=== PATIENT | female | born 1940 | race Caucasian/White ===

== ENCOUNTER 2021-09-28 12:36 | Emergency (ER) | payer OTHER, SELFPAY ==
[2021-09-28 12:50] VITALS: BP 147/74; PULSE 68; RESP 18; TEMP 36.7; O2SAT 98
--- NOTE | 2021-09-28 13:05 | ED.WOUNDLAC ---
HPI - Wound/Laceration General Chief Complaint: Wound/Laceration Stated Complaint: Laceration to Right Hand Time Seen by Provider: 09/28/21 13:05 Source: patient and family History of Present Illness HPI narrative: PATIENT PRESENTS WITH AN OLD LACERATION TO TOP OF RIGHT HAND. PATIENT STATES SHE HIT THE BACK OF HER HAND ON A METAL CABINET YESTERDAY AFTERNOON. PATIENT IS ON PLAVIX AND IS UNABLE TO STOP AREA FROM BLEEDING. PATIENT IS UNSURE OF HER LAST TETANUS SHOT. Extremity Location: Right: hand Related Data Home Medications Medication Instructions Recorded Confirmed albuterol sulfate 90 mcg/actuation 1 inhalation INHALATION Q4-6H PRN 02/16/20 breath activated powder inhaler aspirin 81 mg tablet,delayed 81 mg PO DAILY 02/16/20 release atorvastatin 80 mg tablet 80 mg PO DAILY 02/16/20 clopidogrel 75 mg tablet 75 mg PO DAILY 02/16/20 diphenhydramine 25 1 tablet PO Q6H PRN 02/16/20 mg-acetaminophen 500 mg tablet furosemide 20 mg tablet 20 mg PO QAM 02/16/20 nebivolol 10 mg tablet 10 mg PO DAILY 02/16/20 pantoprazole 40 mg tablet,delayed 40 mg PO QAM 02/16/20 release spironolactone 25 mg tablet 25 mg PO DAILY 02/16/20 vitamin B complex 1 tablet PO DAILY 02/16/20 Allergies Allergy/AdvReac Type Severity Reaction Status Date / Time amoxicillin Allergy Unknown Unknown Verified 09/28/21 13:20 hydromorphone AdvReac Unknown Confusion Verified 09/28/21 13:20 Review of Systems Review of Systems: CONSTITUTIONAL: Denies fever, chills, or sweats. EYES: Denies visual changes, redness, or discharge. ENT: Denies rhinorrhea, congestion, sore throat, or otalgia. CARDIOVASCULAR: Denies chest pain, palpitations, or edema. RESPIRATORY: Denies cough or dyspnea. GASTROINTESTINAL: Denies abdominal pain, nausea, vomiting, or diarrhea. GENITOURINARY: Denies dysuria or hematuria. SKIN: Denies rash or itching. MUSCULOSKELETAL: Denies back pain, joint pain, or myalgia. NEUROLOGIC: Denies headache, numbness, or weakness. PSYCHIATRIC: Denies anxiety or depression. 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 Smoking packs per day: 1 Smoking cigarettes per day: 20.0 Years smoked: 60 Smoking pack-years: 60.00 Smoking status: Current every day smoker Alcohol intake: never Substance use: never Comments At time of signature, agree with nursing past medical, surgical, social and family history. There is no relevant family history pertinent to the presenting complaint Exam Narrative: GENERAL: Well-appearing, well-nourished, and in no acute distress. HEAD: Normocephalic, atraumatic. EYES: PERRLA and EOMI. ENT: Nares clear, no rhinorrhea or epistaxis. Mucous membranes moist. NECK: Supple. CHEST: Clear to auscultation. No respiratory distress. HEART: Regular rate and rhythm. No murmur heard. Normal peripheral pulses. ABDOMEN: Soft, nontender, nondistended, normal active bowel sounds. EXTREMITIES: Normal range of motion. No edema. HAND EXAM - OLD laceration TO TOP OF RIGHT HAND. , no swelling, no erythema, normal digit cascade with flexion of fingers, median nerve, ulnar nerve, radial nerve is intact. Normal sensation of each side of each finger, can perform `ok? sign, `cross over finger test of index and middle fingers? and `thumbs up? sign, normal thumb opposi
[2021-09-28] MEDS: TETANUS,DIPHTHERIA,AC PERTUSSIS ADULT (0.5 ML) BOOSTRIX IM (13:27)
== END 2021-09-28 13:45 | disposition home or self-care (01) ==
PROVIDERS: Emergency Provider Nurse Practitioner Family; PCP Internal Medicine Infectious Disease
DX: S61.411A Laceration without foreign body of right hand, initial encounter (principal); W22.8XXA Striking against or struck by other objects, initial encounter; T14.8XXA Other injury of unspecified body region, initial encounter; Z23 Encounter for immunization; F17.210 Nicotine dependence, cigarettes, uncomplicated; J44.9 Chronic obstructive pulmonary disease, unspecified
CPT/HCPCS: 90471; 90715; 99212; G0463

== ENCOUNTER 2025-06-20 14:00 | Emergency (ER) | payer OTHER, SELFPAY ==
[2025-06-20 14:14] VITALS: BP 174/80; PULSE 69; RESP 18; TEMP 36.9; O2SAT 97
--- NOTE | 2025-06-20 14:49 | ED.EXTPRO ---
HPI - Extremity Problem General Chief complaint: Extremity Problem,Nontraumatic Stated complaint: R leg pain Time Seen by Provider: 06/20/25 14:30 Source: patient, RN notes reviewed and old records reviewed Mode of arrival: ambulatory Limitations: no limitations History of Present Illness HPI Narrative: 85 year old female who presents to [facility] care with complaints of 3 day history of right bettencourt pain which radiates to right thigh and groin and into buttocks. Patient reports that the only injury was a small book fell onto her bettencourt 3 days ago with small bruised area to her anterior right bettencourt noted. Patient states that she does have some lower back issues at time where she has some pain in right lower back that goes into her leg. She reports that she was found to have some osteoporosis in April on back xray and was started on Fosamax. Patient is on blood thinners of Eliquis daily for heart disease and states has a stent in her abdomen somewhere. Patient reports that she has taken some Tylenol for her discomfort. MD Complaint: extremity pain Onset (ago): day(s) (3) Location: right and lower extremity (anterior bettencourt area) Severity scale (1-10): 6 Quality: aching Related Data Home Medications ?Medication ?Instructions ?Recorded ?Confirmed ?Last Taken ?Type albuterol sulfate 90 mcg/actuation 1 inhalation inhalation Q4-6H PRN 02/16/20 09/28/21 Unknown History breath activated powder inhaler Dyspnea aspirin 81 mg tablet,delayed 81 mg PO DAILY 02/16/20 09/28/21 Unknown History release (Adult Aspirin Regimen) atorvastatin 80 mg tablet 80 mg PO DAILY 02/16/20 09/28/21 Unknown History furosemide 20 mg tablet 20 mg PO QAM 02/16/20 09/28/21 Unknown History spironolactone 25 mg tablet 25 mg PO DAILY 02/16/20 09/28/21 Unknown History vitamin B complex (B 1 tablet PO DAILY 02/16/20 09/28/21 Unknown History Complex-Vitamin B12 tablet) alendronate 70 mg tablet mg PO 06/20/25 Unknown History amiodarone 100 mg tablet mg 06/20/25 Unknown History apixaban 2.5 mg tablet (Eliquis) mg 06/20/25 Unknown History buspirone 5 mg tablet mg 06/20/25 Unknown History magnesium oxide 400 mg (241.3 mg mg 06/20/25 Unknown History magnesium) tablet metolazone 2.5 mg tablet mg 06/20/25 Unknown History metoprolol succinate 50 mg mg PO 06/20/25 Unknown History tablet,extended release 24 hr Allergies Allergy/AdvReac Type Severity Reaction Status Date / Time amoxicillin Allergy Unknown Unknown Verified 06/20/25 14:17 doxycycline Allergy Unknown Verified 06/20/25 14:17 hydromorphone AdvReac Unknown Confusion Verified 06/20/25 14:17 Review of Systems Review of Systems: CONSTITUTIONAL: Denies fever, chills, or sweats. EYES: Denies visual changes, redness, or discharge. ENT: Denies rhinorrhea, congestion, sore throat, or otalgia. CARDIOVASCULAR: Denies chest pain, palpitations, or edema. RESPIRATORY: Denies acute cough or any increased dyspnea, does have COPD and continues to smoke cigarettes daily GASTROINTESTINAL: Denies abdominal pain, nausea, vomiting, or diarrhea. GENITOURINARY: Denies dysuria or hematuria. SKIN: Denies rash or itching. MUSCULOSKELETAL: Reports some lower back pain,pain in right bettencourt thigh groin and buttocks , or myalgia. NEUROLOGIC: Denies headache, numbness, or weakness. PSYCHIATRIC: Reports history of anxiety or depression. All systems reviewed & are unremarkable except as noted in HPI and below PMFSH Past Medical History Medical History (Updated 06/21/25 @ 14:30 by Giselle Carlson APRN) Elevated cholesterol Hypertension CHF (congestive heart failure) Cardiomyopathy Chronic a-fib Heart disease COPD (chronic obstructive pulmonary disease) case management patient Decreased diffusion capacity Tobacco abuse Shortness of Breath Bibasilar crackles Surgical History Surgical History (Updated 06/21/25 @ 13:58 by Giselle Carlson APRN) History of dilatation and curettage Hx of section History of tonsillectomy Hx of cholecystectomy Family History Family History (Updated 02/19/20 @ 22:09 by Leanna Ken MD) Mother Blood clotting disorder age 53 Father Liver disease Social History Social History (Updated 02/19/20 @ 22:11 by Leanna Ken MD) Social History: Her granddaughter lives with her; smokes daily, no alcohol, retired; 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 Smoking packs per day: 1 Smoking cigarettes per day: 20.0 Years smoked: 60 Smoking pack-years: 60.00 Smoking status: Current every day smoker Alcohol intake: never Substance use: never Living arrangements: with family Occupation/Education: retired Comments At time of signature, agree with nursing past medical, surgical, social and family history. There is no relevant family history pertinent to the presenting complaint Exam Narrative: GENERAL:chronic ill-appearing, well-nourished, and in no acute distress. HEAD: Normocephalic, atraumatic. EYES: PERRLA and EOMI. ENT: Nares clear, no rhinorrhea or epistaxis. Mucous membranes moist.TM's normal with good light reflex, throat pink with no swelling or exudates NECK: Supple. no lymphadenopathy CHEST: Decreased to auscultation. No respiratory distress.occasional dry cough noted SAO2 97% on room air HEART: irregular rate and rhythm. No murmur heard. Normal peripheral pulses. ABDOMEN: Soft, nontender, nondistended, normal active bowel sounds, reports some constipation issues EXTREMITIES: Normal range of motion. No edema noted pedal pulse present right foot small bruise to right lower anterior bettencourt, patient is able to ambulate without increased pain voiced and gait steady. . SKIN: Warm, dry, no rash. NEURO: No focal deficits. Alert and oriented x3. Course Course Emergency Course: Patient is aware of diagnosis, understands and agrees to treatment plan.? Anticipatory guidance given.? Patient agrees to follow-up as directed and is aware of reasons to seek care at the emergency department. Portions of this record may have been created with voice recognition software Level of Care: Express Care Visit Vital Signs Vital signs: Vital Signs Temperature 36.9 C 06/20/25 14:14 Pulse Rate 69 06/20/25 14:14 Respiratory Rate 18 06/20/25 14:14 Blood Pressure 174/80 H 06/20/25 14:14 Pulse Oximetry 97 06/20/25 14:14 Oxygen Delivery Room Air 06/20/25 14:14 Temperature 36.9 C 06/20/25 14:14 Pulse Rate 69 06/20/25 14:14 Respiratory Rate 18 06/20/25 14:14 Blood Pressure 174/80 H 06/20/25 14:14 Pulse Oximetry 97 06/20/25 14:14 Oxygen Delivery Room Air 06/20/25 14:14 Reviewed MDM - Extremity (Nontraumatic) Differential Diagnosis Differential diagnosis: Likely other (pain to right leg, lower back pain, contusion right leg, bruise to lower right anterior bettencourt.) Medical Records Attestation: I reviewed the patient's medical records. Critical Care Time Critical Care Time Critical Care Time: No Discharge Plan Discharge Clinical Impression: Leg pain, right Pain in bettencourt Qualifiers: Laterality: right Qualified Code(s): M79.661 - Pain in right lower leg Patient Disposition: Home Condition: Stable Instructions: Leg Pain (ED) Additional Instructions: Tylenol arthritis 650 mg one tab orally every 6 -8 hours routinely Tylenol for lesser pain Follow-up with PCP for any further complaints or problems Follow-up with PCP if further problems or concerns Ice to the area 20-30 minutes 4-6 times a day Elevate above heart If your symptoms persist, change or worsen significantly before you can contact your personal physician then please, without delay, go to the emergency department for further evaluation. Follow-up with PCP in 7-10 days or sooner if needed Follow up with PCP soon in regards to your blood pressure which is elevated above threshold for referral. Blood pressure above 120/80 may indicate pre-hypertension. Patient Language: Croatian Prescriptions: No Action metolazone 2.5 mg tablet buspirone 5 mg tablet metoprolol succinate 50 mg tablet extended release 24 hr PO alendronate 70 mg tablet PO magnesium oxide 400 mg (241.3 mg magnesium) tablet amiodarone 100 mg tablet Eliquis 2.5 mg tablet furosemide 20 mg tablet 20 mg PO QAM atorvastatin 80 mg tablet 80 mg PO DAILY spironolactone 25 mg tablet 25 mg PO DAILY aspirin [Adult Aspirin Regimen] 81 mg tablet,delayed release (DR/EC) 81 mg PO DAILY albuterol sulfate 90 mcg/actuation aerosol powdr breath activated 1 inhalation INHALATION Q4-6H PRN (Reason: Dyspnea) vitamin B complex [B Complex-Vitamin B12] Tablet 1 tablet PO DAILY albuterol sulfate 2.5 mg /3 mL (0.083 %) solution for nebulization 2.5 mg INHALATION Q6H Qty: 90 0RF Follow-up/Referrals: UNKNOWN,DOCTOR [Primary Care Provider] Time of Disposition: 14:54 Quality Jimbo Coma Scale Eyes: Open Verbal: Oriented and Alert Motor: Follows Commands [place] Coma Total Score: 15
--- OUTSIDE RECORDS SUMMARY | 2025-06-20 15:37 | XMS_ITS | Encounter Summary ---
Author Organization [facility] Healthcare Address [address] [place] [address] Care Team Providers Care Engine Repair Supervisor Name Role Phone Sarthak Jensen MD Unavailable [phone] Darren Houser MD Unavailable [phone] Bette More MD Unavailable [phone] Leanna Ken MD Unavailable [phone] Nicolas Garcia DPM Unavailable [phone] MD Unavailable [phone] Bertrand Vick MD Unavailable [phone] Leti Manuel NP Primary Care Provider Encounter Details Date Type Department Care Team (Latest Contact Info) Description 06/06/2025 Results Follow-Up [facility] at [address] [place] [id number] Obi Lawler MA Basic metabolic panel, Pro B-type natriuretic peptide, eGFR Social History Tobacco Use Types Packs/Day Years Used Date Smoking Tobacco: Every Day Cigarettes 0.5 70.6 Started: 1955; Last attempted to quit: 02/14/2023 Smokeless Tobacco: Never Alcohol Use Standard Drinks/Week Comments Never 0 (1 standard drink = 0.6 oz pur e alcohol) [facility] Utilities Answer Date Recorded In the past 12 months has e electric, gas, oil, or water company threatened to shut off services in your home? No 02/01/2025 Social Connection and Isolation Panel Answer Date Recorded In a typical week, how many times do you talk on the phone with family, friends, or neighbors? More than three times a week 02/01/2025 How often do you get togethe r with friends or relatives? More than three times a week 02/01/2025 How often do you attend chur ch or confucianist services? Never 02/01/2025 Do you belong to any clubs o r organizations such as mormonism groups, unions, fraternal or athletic groups, or school groups? No 02/01/2025 How often do you attend meet ings of the clubs or organizations you belong to? Never 02/01/2025 Are you , , di vorced, , never , or living with a partner? 02/01/2025 Overall Financial Resource Strain (CARDIA) Answe r Date Recorded How hard is it for you to pa y for the very basics like food, housing, medical care, and heating? Not very hard 02/01/2025 PHQ-2 Answer Date Recorded PHQ-2 Total Score (If total score is 3 or more points, staff should administer the PHQ-9) 0 02/06/2025 Hunger Vital Sign Answer Date Recorded Within the past 12 months, y ou worried that your food would run out before you got the money to buy more. Never true 02/02/20 25 Within the past 12 months, t he food you bought just didn't last and you didn't have money to get more. Never true 02/01/2025 PRAPARE - Transportation Answer Date Re corded In the past 12 months, has l ack of transportation kept you from medical appointments or from getting medications? No 01/15 In the past 12 months, has l ack of transportation kept you from meetings, work, or from getting things needed for daily living? No 02/01/2025 Housing Stability Vital Sign Answer Santi e Recorded In the last 12 months, was t here a time when you were not able to pay the mortgage or rent on time? No 07/17/2023 In the last 12 months, how many places have you lived? 1 07/17/2023 In the last 12 months, was t here a time when you did not have a steady place to sleep or slept in a alf (including now)? No 07/17/2023 Housing Stability Vital Sign Answer Santi e Recorded Unable to Pay for Housing in the Last Year Not o n file 02/01/2025 In the past 12 months, how m any times have you moved where you were living? 0 02/01/2025 At any time in the past 12 m [facility], were you homeless or living in a alf (including now)? No 02/01/2025 AUDIT-C Answer Date Recorded Q1: How often do you have a drink containing alcohol? Never 03/28/2025 Q2: How many drinks containi ng alcohol do you have on a typical day when you are drinking? Patient does not drink Q3: How often do you have si x or more drinks on one occasion? Never 03/28/2025 Personal Safety Answer Date Recorded Have you ever been in or are you currently in a harmful physical or emotional relationship or is someone making you feel afraid or unsafe? 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 Gender Identity Not on file Sexual Orientation Not on file documented as of this encounter Plan of Treatment Not on file documented as of this encounter Visit Diagnoses Not on filedocumented in this encounter Care Teams Engine Repair Supervisor Relationship Specialty Start Date End Date Leti Manuel NP [address] [place] [id number] PCP - General Family Medicine 11/15/24 Sarthak Jensen MD Consulting Physician Cardiology 03/04/18 Darren Houser MD Consulting Physician Cardiology 08/28/19 Bette More MD Consulting Physician Cardiology 01/11/20 Leanna Ken MD [id number] [address] Consulting Physician Pulmonary Disease 02/15/20 Nicolas Garcia DPM [address] [place] [address] Consulting Physician Foot and Ankle Surg 05/08/[address] MD [address] [place] [address] Consulting Physician Dermatology 02/10/22 Bertrand Vick MD [address] [place] [address] Referring Physician Ophthalmology 12/09/23 documented as of this encounter
--- OUTSIDE RECORDS SUMMARY | 2025-06-20 15:37 | XMS_ITS | Clinical Summary ---
Author Organization [facility] Address [address] [address] Phone Care Team Providers Care Commercial Driver Name Role Phone Cornel Amaya MD Primary Care Provider [phone] Allergies Active Allergy Reactions Criticality Noted Date Comments Amoxicillin Itching Medium 07/17/2015 Doxycycline Anxiety 02/25/2024 Hydromorphone Hallucinations 02/25/2024 Medications aspirin EC 81 MG Tablet Delayed Response Take 81 mg by mouth daily. Active apixaban (Eliquis) 2.5 MG Tablet Take 2.5 mg by mouth 2 times daily. Active atorvastatin (LIPITOR) 80 MG Tablet Take 80 mg by mouth nightly. Active magnesium oxide (MAG-OX) 400 MG Tablet Take 400 mg by mouth daily. Active metoprolol Succinate (TOPROL-XL) 25 MG TABLET SR 24 HRIndications:Hype rtrophic Cardiomyopathy Take 25 mg by mouth daily. Indications: Hypertrophic Cardiomyopathy Active furosemide (LASIX) 20 MG Tablet Take 60 mg by mouth daily. Active amiodarone HCl (CORDARONE) 100 MG Tablet Take 100 mg by mouth daily. Active Potassium Chloride Priscila ER (KLOR-CON M20 PO) Take 20 mEq by mouth daily. Active Cyanocobalamin (Vitamin B-12 CR) 1000 MCG Tablet Controlled Release Take 1 Tablet by mouth daily. Active diphenhydrAMINE-AP AP, sleep, (TYLENOL PM EXTRA STRENGTH PO) Take 1 Tablet by mouth nightly. Active famotidine (PEPCID) 20 MG Tablet Take 20 mg by mouth 2 times daily. Active metOLazone (ZAROXOLYN) 2.5 MG Tablet 2.5 mg PO weekly prn for weight gain x>2 lbs 90 Tablet 02/27/20 24 Active Active Problems Problem Noted Date Diagnosed Date Tobacco abuse Mesenteric artery stenosis Overview (02/25/2024): Stent x 3 Irritable bowel syndrome with diarrhea Hypertension Heart murmur Dyslipidemia COPD (chronic obstructive pulmonary disease) Colon polyps Carotid artery stenosis Aortic stenosis Resolved Problems Problem Noted Date Diagnosed Date Resolved Date Hypokalemia 02/25/2024 02/27/2024 ROSALINA (acute kidney injury) 02/25/2024 Elevated troponin 02/25/2024 02/27/2024 Immunizations Immunization Administration Dates Next Due Influenza Vaccine greater than 3 yrs 06/13/2015 Family History Medical History Relation Name Comments Crohn's Disease Sister Clotting Disorder Other PE Relation Name Status Comments Sister Other Social History Tobacco Use Types Packs/Day Years Used Date Smoking Tobacco: Every Day Cigarettes 1 60 Tobacco Cessation:Ready to Q uit: Not Asked; Counseling Given: Not Answered Alcohol Use Standard Drinks/Week Comments Yes 0 (1 standard drink = 0.6 oz pur e alcohol) Socially when younger [facility] Utilities Answer Date Recorded In the past 12 months has th e [employer], gas, oil, or water [employer] threatened to shut off services in your home? Patient unable to answer 02/25/2024 Exercise Vital Sign Answer Date Recorde d On average, how many days pe r week do you engage in moderate to strenuous exercise (like a brisk walk)? Patient declined Minutes of Exercise per Session Not on file 02/25/2024 Hunger Vital Sign Answer Date Recorded Within the past 12 months, y ou worried that your food would run out before you got the money to buy more. Patient unable to answer 02/25/2024 Within the past 12 months, t he food you bought just didn't last and you didn't have money to get more. Patient unable to answer 02/25/2024 PRAPARE - Transportation Answer Date Re corded In the past 12 months, has l ack of transportation kept you from medical appointments or from getting medications? Patient unable to answer 02/25/2024 In the past 12 months, has l ack of transportation kept you from meetings, work, or from getting things needed for daily living? Patient unable to answer 02/25/2024 Housing Stability Vital Sign Answer Santi e Recorded In the last 12 months, was t here a time when you were not able to pay the mortgage or rent on time? Patient unable to answer 02/25/2024 In the past 12 months, how m any times have you moved where you were living? 0 02/25/2024 At any time in the past 12 m ont, were you homeless or living in a skilled nursing (including now)? Patient unable to answer 02/25/2024 Sexually Active Control Partners Comments Not Currently Comments No Sex and Gender Information Value Date Recorded Sex Assigned at Not on file Legal Sex Female 7:57 PM CDT Gender Identity Not on file Sexual Orientation Not on file Last Filed Vital Signs Vital Sign Reading Time Taken Comments Blood Pressure 121/52 02/27/2024 8:24 AM CDT Pulse 66 02/27/2024 8:00 AM CDT Temperature 36 C (96.8 F) 02/27/2024 8:00 AM CDT Respiratory Rate 18 02/27/2024 8:00 AM CDT Oxygen Saturation 100% 02/27/2024 8:00 AM CDT Inhaled Oxygen Concentration - - Weight 59 kg (130 lb) 02/26/2024 11:01 AM CDT be d scale Height 160 cm (5' 3) 02/25/2024 8:56 PM CDT Body Mass Index 23.03 02/25/2024 8:56 PM CDT Plan of Treatment Health Maintenance Due Date Last Done Comments Hepatitis C Virus (HCV) Screening 1940 Medicare Initial AWV [id number] 08/17/2013 Respiratory Syncytial Virus (RSV) Immunization (Adult) (1 - 1-dose 75+ series) 2014 DEXA Bone Density 11/08/2023 11/07/2021, , 02/25/2017 Influenza Immunization (#1) 04/17/202504/17, 04/25/2023, 06/26/2022, Additional history exists SARS-COV-2 Immunization ( season) 2025 02/24/2022, 08/22/2021, 12/04/2020, Additional history exists Lung Cancer Screening Discontinued 09/28/2018, 016 Pneumococcal Immunization (50+ years) Completed 04/21/2019, 05/06/2016, 07/05/2012 Pneumococcal Immunization Combined Discontinued 04/21/2019, 05/06/2016, 07/05/2012 Zoster Immunization Completed 10/24/2020, DTaP/Tdap/Td Immunization Discontinued 09/28/2021, TdaP Immunization Completed 09/28/2021, 07/05/2012 Hepatitis B Immunization Aged Out No longer eligible based on patient's age to complete this topic Human Papillomavirus (HPV) Immunization Aged Out No longer eligible based on patient's age to complete this topic Meningococcal Immunization (ACWY) Aged Out No longer eligible based on patient's age to complete this topic Rotavirus Immunization Aged Out No lo nger eligible based on patient's age to complete this topic Insurance MEDICARE C [employer] Advance Directives * Full Code (Latest Code Status on File) Date Activated Date Inactivated Comments 02/25/2024 7:33 PM 02/27/2024 2:08 PM CPR-Full Bassam atment: FULL ARREST: Attempt Resuscitation/CPR wit intubation and mechanical ventilation. PRE-ARREST: Use entire range of life support measures to stabilize the patient. Care Teams Commercial Driver Relationship Specialty Start Date End Date Cornel Amaya MD [employer], [address] [place] [address] PCP - General Infectious Disease 02/25/24
--- OUTSIDE RECORDS SUMMARY | 2025-06-20 15:38 | XMS_ITS | Clinical Summary ---
Author Organization [facility] Address [address] [place] [address] Care Team Providers Care Clinical Unit Educator Name Role Phone Sarthak Jensen MD Unavailable [phone] Darren Houser MD Unavailable [phone] Bette More MD Unavailable [phone] Leanna Ken MD Unavailable [phone] Nicolas Garcia DPM Unavailable [phone] MD Unavailable [phone] Bertrand Vick MD Unavailable [phone] Leti Manuel NP Primary Care Provider Allergies Active Allergy Reactions Criticality Noted Date Comments Amoxicillin Itching Medium Palms and bottom of itch, Doxycycline Nausea only,Anxiety Low 03/13/2020 Severe nausea, and call Hydromorphone Mental status changes,Hallucinations Medium 06/02/2017 Ezetimibe Nausea & Vomiting Low 02/10/2022 Medications aspirin 81 mg enteric coated tablet Take 1 tablet (81 mg total) by mouth daily Active acetaminophen (TYLENOL) 500 mg tablet Take 1-2 tablets (500-1,000 mg total) by mouth every 8 (eight) hours as needed for pain 023 Active diphenhydrAMINE-a cetaminophen (TYLENOL PM) 25-500 mg tablet Take 1 tablet by mouth nightly Active cholecalciferol (VITAMIN D-3) 1,000 unit capsule Take 1 capsule (1,000 Units total) by mouth daily Active cyanocobalamin (Vitamin B-12) 1,000 mcg tablet Take 1 tablet (1,000 mcg total) by mouth daily Active saliva stimulant agent (BIOTENE) spray,non-aerosol Indications:Dry mouth Apply 1-2 sprays to mouth 3 (three) times a day as needed (dry mouth) 44.3 mL 1 Active metOLazone (ZAROXOLYN) 2.5 mg tabletIndications :Congestive heart failure with left ventricular diastolic dysfunction, chronic (HCC) TAKE A DOSE IF YOU GAIN 2 OR MORE LBS. 90 tablet 1 025 Active Additional Information Patient not taking.Reported on 06/05/2025 metOLazone (ZAROXOLYN) 2.5 mg tabletIndications :Congestive heart failure with left ventricular diastolic dysfunction, chronic (HCC),Mixed hyperlipidemia Take 1 tablet (2.5 mg total) by mouth 2 (two) times a week 30 tablet 3 Active bisacodyL 5 mg tabletIndications :Other constipation Take 5 mg by mouth 2 (two) times a day as needed (constipation) 30 tablet Active Additional Information Patient not taking.Reported on 06/05/2025 albuterol 2.5 mg /3 mL (0.083 %) nebulizer solutionIndicatio ns:Centrilobular emphysema Take 3 mL (2.5 mg total) by nebulization 4 (four) times a day as needed for wheezing 75 mL Active amiodarone (PACERONE) 100 mg tabletIndications :Hypertrophic cardiomyopathy (HCC) Take 1 tablet (100 mg total) by mouth daily 90 tablet 025 2025 Active albuterol HFA (PROVENTIL HFA,VENTOLIN HFA,PROAIR HFA) 90 mcg/actuation inhalerIndication s:SOB (shortness of breath) INHALE 2 PUFFS BY MOUTH EVERY 6 HOURS NEEDED FOR WHEEZE 8.5 each Active apixaban (Eliquis) 2.5 mg tabletIndications :atrial fibrillation Take 1 tablet (2.5 mg total) by mouth every 12 (twelve) hours 180 tablet 3 Active furosemide (LASIX) 40 mg tablet Take 1 tablet (40 mg total) by mouth daily 30 tablet 02/21/2 025 2025 Active spironolactone (ALDACTONE) 25 mg tablet Take 1 tablet (25 mg total) by mouth daily 30 tablet 11 025 2025 Active atorvastatin (LIPITOR) 80 mg tabletIndications :Mixed hyperlipidemia Take 1 tablet (80 mg total) by mouth daily 90 tablet 1 Active metoprolol XL (TOPROL-XL) 50 mg extended release tabletIndications :Essential hypertension Take 0.5 tablets (25 mg total) by mouth daily 90 tablet 1 Active potassium chloride ER 20 mEq CR tablet Active busPIRone (BUSPAR) 5 mg tabletIndications :Generalized Anxiety Disorder Take 1 tablet (5 mg total) by mouth 3 (three) times a day 270 tablet 1 Active Additional Information Patient not taking.Reported on 06/05/2025 alendronate (FOSAMAX) 70 mg tabletIndications :Age-related osteoporosis without current pathological fracture Take 1 tablet (70 mg total) by mouth every 7 days Take in the morning with a full glass of water, on an empty stomach, and do not take anything else by mouth or lie down for the next 30 min. 12 tablet 4 025 2025 Active Additional Information Patient not taking.Reported on 06/05/2025 magnesium oxide (MAG-OX) 400 mg (241.3 mg elemental magnesium) tabletIndications :Low magnesium level TAKE 1 TABLET BY MOUTH EVERY DAY 90 tablet 1 Active cyclobenzaprine (FLEXERIL) 10 mg tablet Take 1 tablet (10 mg total) by mouth 2 (two) times a day as needed for muscle spasms 1 024 2023 Discontinued(E xpired) magnesium oxide (MAG-OX) 400 mg (241.3 mg elemental magnesium) tabletIndications :Low magnesium level TAKE 1 TABLET BY MOUTH EVERY DAY 30 tablet 025 2024 Discontinued Active Problems Problem Noted Date Diagnosed Date Hypokalemia 06/05/2025 Aortic stenosis 12/27/2024 Colon polyps 12/27/2024 Carotid artery stenosis 12/27/2024 Preventative health care 12/27/2024 Assessment & Plan (03/28/2025 4:41 PM CDT): - New or chronic worsening conditions: no significant acute issues on this visit - Mental health: no significant psychiatric/mental health conditions affecting her day to day functioning - Dental health: Up to date with regular dental care and cleaning. Discussed importance of regular tooth brushing, flossing, and dental visits. - Nutrition: Stressed importance of moderation in sodium/caffeine intake, saturated fat and cholesterol, caloric balance, sufficient intake of fresh fruits, vegetables - Exercise: Stressed the importance of regular exercise - Immunizations: Age and sex appropriate immunizations reviewed and offered - Breast Cancer screening: Up-to-date - Colon cancer screening: Up-to-date - Lung cancer screening: Not indicated at this time - Bone desnity/osteoporosis screening: Awaiting completion Orders: CBC with auto differential; Future Comprehensive metabolic panel; Future Thyroid Function [place]; Future Lipid panel; Future Vitamin D 25 hydroxy; Future Vitamin B12; Future Magnesium; Future Dry mouth 12/27/2024 Assessment & Plan (12/27/2024 9:54 PM CDT): -New complaint, chronic -Patient endorses ongoing difficulty with dry mouth for some time now -Patient reports drinking lots of water which does not seem to help -Saliva stimulant spray prescribed -Continue current treatment plan Body mass index (BMI) of 22.0 to 22.9 in adult 0 12/27/2024 Assessment & Plan (03/28/2025 4:41 PM CDT): Wt Readings from Last 3 Encounters: 03/28/25 58.1 kg (128 lb) 02/21/25 57.6 kg (127 lb) 02/06/25 58 kg (127 lb 14.4 oz) Body mass index is 22.68 kg/m . -Stable, at goal of <30 bmi -Discussed recommendations for exercise at least 30 minutes moderate to vigorous exercise as tolerated most days of the week. (minimum 150 minutes weekly) -Discussed importance of well-balanced diet Assessment & Plan (02/07/2025 6:44 AM CDT): Wt Readings from Last 3 Encounters: 02/06/25 58 kg (127 lb 14.4 oz) 01/29/25 57.7 kg (127 lb 3.3 oz) 01/25/25 58 kg (127 lb 14.4 oz) Body mass index is 22.66 kg/m . -Stable, at goal of <30 bmi -Discussed recommendations for exercise at least 30 minutes moderate to vigorous exercise as tolerated most days of the week. (minimum 150 minutes weekly) -Discussed importance of well-balanced diet Assessment & Plan (01/26/2025 9:31 AM CDT): Wt Readings from Last 3 Encounters: 01/25/25 58 kg (127 lb 14.4 oz) 12/27/24 60.3 kg (132 lb 14.4 oz) 11/01/24 60.3 kg (133 lb) Body mass index is 23.39 kg/m . -Stable, at goal of <30 bmi -Discussed recommendations for exercise at least 30 minutes moderate to vigorous exercise as tolerated most days of the week. (minimum 150 minutes weekly) -Discussed importance of well-balanced diet Assessment & Plan (12/27/2024 9:45 PM CDT): Wt Readings from Last 3 Encounters: 12/27/24 60.3 kg (132 lb 14.4 oz) 11/01/24 60.3 kg (133 lb) 09/08/24 59.9 kg (132 lb) Body mass index is 23.55 kg/m . -Stable, at goal of <30 bmi -Discussed recommendations for exercise at least 30 minutes moderate to vigorous exercise as tolerated most days of the week. (minimum 150 minutes weekly) -Discussed importance of well-balanced diet Stress incontinence in female 03/08/2024 Assessment & Plan (03/11/2024 10:03 AM CDT): Complaining of urinary dribbling/stress incontinence as described above. No acute findings on exam though she denied a exam in office today. Recent CT abdomen pelvis was unremarkable. She is taking diuretics as prescribed, no medications for overactive bladder at this time. Differentials include stress incontinence VS pelvic floor weakness VS urinary tract structural changes. Offered consult to Urology and or physical therapy, patient refuses at this time. Chronic pain of both shoulders 11/11/2023 Assessment & Plan (11/15/2023 7:18 PM CDT): Chronic pain worse in the last 10 days as described in HPI. Tenderness, decreased ROM, and mild weakness as noted above. No other acute findings or sensory changes. Will obtain XR of both shoulders to r/o worsening arthritis or other structural changes. Offered PT referral, patient refused at this time. Advised she cannot take any NSAIDs with Eliquis, continue Tylenol as instructed. Heat/ice as tolerated. ADDENDUM: XRs show severe degenerative changes to both shoulders, offered pain management or ortho referral for intraarticular injections, patient refused. Will continue conservative treatment at this time. Combined forms of age-related cataract of both e yes 06/21/2023 Assessment & Plan (07/16/2023 2:21 PM LAUNDRY PRICING CLERK): Cataract surgery was delayed because her surgeon had his gallbladder out. In any case, she was in the ER with chest pain on the original surgery day. It is now scheduled for sometime in August. Assessment & Plan (07/02/2023 2:43 PM LAUNDRY PRICING CLERK): She is due for left eye cataract surgery in July. The right eye will be done sometime next year. There is no medical contraindication for her to have this surgery. Stage 3b chronic kidney disease (CKD) 05/12/2023 Assessment & Plan (03/28/2025 4:41 PM CDT): Lab Results Component Value Date CREATININE 1.56 (H) 02/27/2025 BUNSER 24 02/27/2025 SODIUM 138 02/27/2025 POTASSIUM 4.3 02/27/2025 CO2 23 02/27/2025 -chronic, controlled -last EGFR was 36 -educated patient on importance of avoiding NSAIDs and other nephrotoxic medications -May consider referral to Nephrology if GFR worsens any further -will continue to monitor renal function Assessment & Plan (02/07/2025 6:44 AM CDT): Lab Results Component Value Date CREATININE 1.35 (H) 02/03/2025 BUNSER 33 (H) 02/03/2025 SODIUM 141 02/03/2025 POTASSIUM 4.3 02/03/2025 CO2 25 02/03/2025 -chronic, controlled -last EGFR was 36 -educated patient on importance of avoiding NSAIDs and other nephrotoxic medications -May consider referral to Nephrology if GFR worsens any further -will continue to monitor renal function Assessment & Plan (12/27/2024 9:53 PM CDT): Lab Results Component Value Date CREATININE 1.42 (H) 12/23/2024 BUNSER 35 (H) 12/23/2024 SODIUM 141 12/23/2024 POTASSIUM 4.4 12/23/2024 CO2 26 12/23/2024 -chronic, controlled -last EGFR was 36 -educated patient on importance of avoiding NSAIDs and other nephrotoxic medications -May consider referral to Nephrology if GFR worsens any further -will continue to monitor renal function Assessment & Plan (08/24/2024 3:31 PM LAUNDRY PRICING CLERK): Chronic, present for more than a year, creatinine fluctuates with no definite trend. We will see her back in three months with labs. Assessment & Plan (05/16/2024 2:44 PM CDT): Chronic, present for more than a year. She did not recall discussing this previously, but we did discuss it in detail today. It is likely due to a combination of medical illnesses and vascular disease. It appears to be stable over at least the past 12 months. Imaging of the kidneys did show some benign-appearing cysts. There was no renal artery stenosis. She saw Dr. Tse in Nephrology and will continue to follow-up in that setting as well. Assessment & Plan (03/11/2024 9:59 AM CDT): Chronic, stable. See recent hospitalization above for ROSALINA. Labs stable upon discharge. Diuretic regimen changed in hospital, tolerating well. No acute findings on exam. Continue Lasix and metolazone as prescribed. Keep follows with nephrology as scheduled. Assessment & Plan (02/22/2024 12:38 PM CDT): Chronic, fair control. Creatinine is marginally higher than previous values over the past nine months. She is on furosemide to control swelling in her legs and the tendency to retain fluid. She cut her dose of potassium in half because it was too hard to swallow. Potassium remains in a good range so we adjusted the dose in her chart to reflect what he is taking Assessment & Plan (10/22/2023 1:15 PM LAUNDRY PRICING CLERK): Function has been relatively stable on serial labs. We ordered follow ups today. 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 Continue same. She sees Dr. Jensen in about two months. Return here in three months. Assessment & Plan (02/10/2024 2:36 PM CDT): Chronic, controlled on medications including aspirin, high-dose generic Lipitor, and metoprolol XL 25 mg daily. Continue same. Assessment & Plan (10/22/2023 1:12 PM LAUNDRY PRICING CLERK): She denies chest pain or pressure. Pulses in the extremities are adequate. Follow-up in three months. Assessment & Plan (08/25/2022 2:24 PM LAUNDRY PRICING CLERK): She has occasional twinges of mild chest discomfort. It is nothing like what she experienced at the hospital about three months ago when she was there with PAF/RVR. She saw Dr. Jensen recently, and he plans to order a stress test before her next cardiology visit. Other constipation 06/17/2022 Overview (08/25/2022): Due to amiodarone per patient. Assessment & Plan (01/26/2025 9:33 AM CDT): -Recurrent, not at goal -Patient endorses some ongoing difficulty with constipation which he has taken [id number] stool softeners for -Patient denies any severe abdominal pain, but states she is fairly uncomfortable and it has been 3-4 days since her last bowel movement -Bisacodyl 5 mg b.i.d. as needed prescribed, encourage patient to continue use of stool softeners and to increase her water intake -If unsuccessful in having a bowel movement in the next 1-2 days or severe abdominal pain occurs, patient encouraged to go to the emergency department -Continue current treatment plan Assessment & Plan (12/18/2022 8:55 PM CDT): Constipation worse over last week. Taking colace but only twice daily, no significant diet changes. Denies acute symptoms, no acute findings on exam. Discussed soluble VS insoluable sources of fiber-avoid nuts, beans, broccoli, cauliflower, green beans, potatoes, and bran. Ok to use Metamucil. Stay hydrated. Educated on natural laxatives such as prunes, apple juice, smooth move tea, coffee, and probiotics. Discussed OTC stool softners in detail. Advised she can safely take docusate QID. Educated on OTC enemas if needed. Assessment & Plan (10/20/2022 1:43 PM LAUNDRY PRICING CLERK): She feels that amiodarone is causing constipation. She started a stool softener but did not bring her medicine list to the office. It sounds like a possible stimulant (red gel tab that she takes up to 6 times a day as needed). We cautioned her not to rely on stimulant bowel remedies. She will call us with the name of the OTC s tool softener and we will adjust the medications as needed. Assessment & Plan (09/04/2022 8:56 AM LAUNDRY PRICING CLERK): She thinks the amiodarone started about three months ago is causing constipation. Previously she had more trouble with loose stools than with constipation. I suggested that she try a fiber supplement and keep her fluid intake up. Anxiety 06/09/2022 Assessment & Plan (03/28/2025 4:41 PM CDT): -chronic, not at goal -patient currently does not take any medication -Patient endorses longstanding history of excessive worrying which she states her daughters have noticed seems to have gotten worse -patient denies any worsening of depressed mood, thoughts of harming themselves or others -BuSpar 5 mg 2-3 times daily as needed prescribed -continue current treatment plan Orders: busPIRone (BUSPAR) 5 mg tablet; Take 1 tablet (5 mg total) by mouth 3 (three) times a day PAF (paroxysmal atrial fibrillation) 05/29/2022 Overview (04/19/2023): Converted to sinus bradycardia on amiodarone. Also on Eliquis adjusted for kidney function. Assessment & Plan (03/28/2025 4:41 PM CDT): -chronic, controlled -currently takes amiodarone 100 mg daily, Eliquis 2.5 mg b.i.d., metoprolol 25 mg daily -follows with cardiology -patient denies any chest pain, heart palpitations, increased fatigue -continue current treatment plan with specialist Assessment & Plan (12/27/2024 9:46 PM CDT): -chronic, controlled -currently takes amiodarone 100 mg daily, Eliquis 2.5 mg b.i.d., metoprolol 25 mg daily -follows with cardiology -patient denies any chest pain, heart palpitations, increased fatigue -continue current treatment plan with specialist Assessment & Plan (08/28/2024 2:17 PM LAUNDRY PRICING CLERK): Chronic, present for 2-3 years, controlled on amiodarone 200 mg daily and apixaban 2.5 mg twice daily adjusted for her kidney function and age. Continue same. Assessment & Plan (05/18/2024 9:13 PM CDT): Chronic, present for about 2 years, heart rhythm currently regular indicating probable underlying sinus rhythm on amiodarone 100 mg daily. She also takes apixaban 2.5 mg twice daily to control stroke and other embolic risk. She denies bleeding complications. She requested samples and we will have her check at the [facility]. Assessment & Plan (02/10/2024 2:38 PM CDT): Chronic, controlled with amiodarone which is keeping her in sinus rhythm. Heart rate is normal. At home she says heart rate tends to run a little slow. She also takes Eliquis. It is adjusted for her age and kidney function. Assessment & Plan (07/02/2023 2:46 PM LAUNDRY PRICING CLERK): Currently heart rhythm is regular, so she is most likely in sinus rhythm at this time. She is on an adjusted dose of Eliquis for paroxysmal atrial fibrillation given her age, kidney function, and being on aspirin. Plavix was discontinued. The Eliquis is too expensive for her and she says she might stop it if she can not get samples. We discussed the rationale for treating with blood thinners. She could continue just the aspirin, but that would be less protective against stroke or other embolic complications of paroxysmal atrial fibrillation. Assessment & Plan (05/13/2023 3:20 PM CDT): She is on amiodarone and Eliquis. She denies blood in the stool or urine. She did have a left scleral hemorrhage recently but it resolved. Assessment & Plan (01/22/2023 2:56 PM CDT): She is convinced that her current fatigue and dyspnea are due to amiodarone treatment of her recent atrial fibrillation. Recent thyroid labs are normal. We did cut her amiodarone in half after discussing her concerns with Cardiology, but this has not improved her sense of well-being or exercise tolerance. She will follow-up with Cardiology in about two weeks to go over everything again. Assessment & Plan (12/25/2022 4:56 PM CDT): Heart rhythm is currently regular. EKG shows no acute changes compared to a recent EKG about a week ago. The patient is convinced that amiodarone is responsible for many of her symptoms including fatigue and shortness of breath. We will discuss management with Cardiology. Assessment & Plan (12/18/2022 8:52 PM CDT): HR regular in office today. No acute symptoms or findings on exam. SOBOE likely due to COPD. Continue current regimen. Assessment & Plan (10/06/2022 6:25 PM LAUNDRY PRICING CLERK): HR regular in office today. No acute symptoms or findings on exam. Consulted with Dr. Jensen about decreasing amio due to patient's concern of constipation, he does not advise at this time. Continue current medication regimen, avoid caffeine. Follow in 2 weeks. Assessment & Plan (08/25/2022 2:30 PM LAUNDRY PRICING CLERK): She was hospitalized about three months ago with AFib/RVR. Symptoms were controlled with medications. Currently the heart rhythm is regular and heart rate is controlled. Continue current therapy. We checked a thyroid hormone level because she is on amiodarone. Lab Results Component Value Date TSH 4.05 08/19/2022 Assessment & Plan (06/06/2022 12:14 PM CDT): She was hospitalized overnight with AFib/RVR and is on appropriate medications. She does still take aspirin in addition to Eliquis so we will review this with Cardiology to see they want her to stay on both. She is on a higher dose of beta-leticia. She will follow-up with Cardiology as scheduled in three weeks. Subcutaneous nodule 08/17/2020 Overview (02/10/2024): Right upper lateral triceps. Photo taken. Present for years Assessment & Plan (02/22/2024 12:39 PM CDT): Images from the original note were not included. Newly reported problem, unknown significance. She has a small benign-appearing subcutaneous nodule on the left upper lateral triceps. We documented this photographically. She thinks it has been there for at least three years and is largely asymptomatic. Size seems to fluctuate. She will let us know if there is any consistent change. Congestive heart failure wit h left ventricular diastolic dysfunction, chronic 05/29/2020 Assessment & Plan (03/28/2025 4:41 PM CDT): -Chronic, controlled -Currently takes Lasix 40 mg daily, metoprolol 25 mg daily, spironolactone 25 mg daily -metolazone 2.5 mg twice weekly and as needed is currently on hold -Follows with cardiology -Most recent EF of 69 -Patient denies any significant increase weight gain, bilateral lower leg edema -Instructed patient if shortness of breath worsens to report to the emergency department -Continue current treatment plan with specialist Assessment & Plan (01/26/2025 9:31 AM CDT): -Chronic, suboptimally controlled -Currently takes Lasix 60 mg daily, metoprolol 25 mg daily, spironolactone 25 mg b.i.d., metolazone 2.5 mg twice weekly and as needed -Recent changes to patient's medication regimen were made which patient reports she had some confusion at first but believes she has it figured out now -Follows with cardiology -Most recent EF of 69 -Patient does endorse some fatigue, feeling weak, shortness for breath but thinks this is due to not taking her medication as prescribed which she has since changed couple of days ago -Patient denies any significant increase weight gain, bilateral lower leg edema -Instructed patient if shortness of breath worsens to report to the emergency department -Continue current treatment plan with specialist Assessment & Plan (12/27/2024 9:52 PM CDT): -Chronic, controlled -Currently takes Lasix 60 mg daily, metoprolol 25 mg daily, potassium 20 mEq, metolazone 2.5 mg daily EF -Follows with cardiology -Most recent EF of 69 -Patient denies any significant increase in fatigue, shortness for breath, weight gain, bilateral lower leg edema -Continue current treatment plan with specialists Assessment & Plan (08/28/2024 2:14 PM LAUNDRY PRICING CLERK): Chronic, present for five or more years, controlled with furosemide 60 mg daily, and metolazone 2.5 mg daily if she gains more than 2 lb. There is no swelling in her legs. Lungs are clear. Creatinine is relatively stable. Follow-up in three months. Lab Results Component Value Date GLUCOSE 121 08/15/2024 CALCIUM 10.3 08/15/2024 SODIUM 141 08/15/2024 POTASSIUM 3.7 08/15/2024 CO2 26 08/15/2024 CHLORIDE 100 08/15/2024 BUNSER 41 (H) 08/15/2024 CREATININE 1.47 (H) 08/15/2024 Assessment & Plan (10/22/2023 1:13 PM LAUNDRY PRICING CLERK): There is no swelling in her legs. She is on furosemide and other medical therapy. We ordered follow-up labs. Assessment & Plan (12/18/2022 9:06 PM CDT): Persistent SOBOE. EKG done in office today shows sinus benito at 49, old ST changes in lateral leads. No acute findings on exam. No edema. Will decrease Metoprolol to 25mg daily due to low HR. Continue all other meds as rxd. Check CMP, CBC, BnP. Keep follow with cardiology next month. Assessment & Plan (12/18/2022 8:42 PM CDT): Chronic problem co-managed by cardiology. C/o worsening SOBOE over last 2 weeks. no acute findings on exam, no edema. HR regular without murmur. Last ECHO 04/2021 showed EF of 75% but grade 1 diastolic dysfunction. Last EKG 07/2022 showed sinus benito. SOB Likely more COPD related. Lungs clear. Will switch inhalers-see plan for COPD. Assessment & Plan (10/20/2022 1:38 PM LAUNDRY PRICING CLERK): She is on medical therapy including furosemide and a beta-leticia. Spironolactone was discontinued last week due to hyperkalemia. We will check a follow-up potassium level. Assessment & Plan (10/03/2022 3:31 PM LAUNDRY PRICING CLERK): Stable on current therapies, sees Dr. Jensen on regular basis. C/o increased fatigue complicated by COPD as well. Vitals stable. No acute findings on exam. Assessment & Plan (04/01/2022 12:16 PM CDT): There is no clinical evidence of active CHF at this time. She was in the ER a couple days ago, and chest x-ray was negative for heart failure. Assessment & Plan (02/10/2022 2:43 PM CDT): She gets a little short of breath with exertion, but some of this could be due to her underlying lung disease. There is no swelling in her legs. She is on spironolactone and a beta-leticia. Continue same. Assessment & Plan (12/10/2021 1:37 PM CDT): Patient presents with reports of LE edema R>L, weight gain, chronic SOB and chest pain that started over the weekend. She took a dose of lasix 20 mg she had at home and symptoms improved. On exam today no edema noted. Lungs are clear and oxygen saturation is normal. Last echo showed severe concentric LVH with EF of 75-80%. She remains on BB and aldactone at this time. We will do some labs today to look for any signs of volume overload, anemia or renal dysfunction. At this time patient BP and weight are stable we will monitor. Based on exam findings today does not appear grossly overloaded, but will monitor closely. Will see if she can see cardiology sooner based on symptoms and f/u here in the next 2-3 weeks. Assessment & Plan (11/04/2021 3:25 PM CDT): She has spironolactone, but is not otherwise requiring diuretic therapy. There is no swelling in her legs. There are no bibasilar crackles. Assessment & Plan (08/05/2021 2:30 PM LAUNDRY PRICING CLERK): She monitors her weight and if it goes up a few lb, she was instructed by her front office specialist, Dr. Jensen, to take furosemide which she has at home. At the present time, there is no swelling in her legs. She has gained a little weight, but she attributes this to being on prednisone for degenerative changes in her neck and having a better appetite. Assessment & Plan (07/25/2020 2:35 PM LAUNDRY PRICING CLERK): She has some diastolic dysfunction, but there is no swelling in her legs at this time so we will keep her simply on spironolactone and avoid loop and thiazide diuretics. Assessment & Plan (05/07/2020 7:03 PM CDT): She denies any new symptoms of concern. There is at most trace edema in her lower legs. Lungs are free of crackles. She says she is not urinating as much since her diuretics were changed or reduced or discontinued (it is a little unclear exactly what she is taking at this time, so we will have staff clarify this when she has her meds in front of her). Follow up in 3 months, or sooner if needed. Assessment & Plan (03/26/2020 3:17 PM CDT): She had to reschedule with Dr. Jensen because of COVID -19. She is on a good heart failure medication regimen, but due to recent problems with fluid and electrolyte imbalance, we will lower the dose of diuretic. We are checking follow-up electrolytes. Return in 10 days. Assessment & Plan (03/19/2020 5:49 PM CDT): Resume home meds Low serum vitamin B12 08/03/2019 Overview (08/06/2019): Low-normal B12 Lab Results Component Value Date VITB12 338 08/03/2019 Assessment & Plan (03/28/2025 4:41 PM CDT): -chronic, controlled -patient currently prescribed albuterol rescue inhaler, albuterol nebulizer solution -Follows with pulmonology -patient reports their emphysema is fairly well-controlled on current regimen -patient denies needing to use rescue inhaler frequently -no wheezing noted on exam -continue current treatment plan Lab Results Component Value Date VITB12 985 01/17/2020 -chronic, controlled -currently takes daily vitamin B12 supplement -most recent vitamin B12 level noted above -Will recheck lab value -continue current treatment plan Orders: Vitamin B12; Future Assessment & Plan (05/07/2020 7:19 PM CDT): She wanted to know if she needs to continue the B12 supplement. I recommend that she continue the supplement indefinitely. We can check a follow up B12 level at some point in the future. Low magnesium level 07/02/2019 Overview (07/25/2020): See hospital records, corrected with supplement. Recurrent March 2020, oral supplement added. Assessment & Plan (03/28/2025 4:41 PM CDT): -Chronic, controlled -Currently takes daily magnesium supplement -Will recheck lab value -Continue current treatment plan Orders: Magnesium; Future Assessment & Plan (11/04/2021 3:21 PM CDT): She is on a replacement. We will continue same and check levels periodically. Assessment & Plan (05/07/2020 7:17 PM CDT): Her magnesium level remains a little low, possibly due to diuretic therapy. I recommend that she stay on a supplement indefinitely. Assessment & Plan (07/02/2019 10:47 PM LAUNDRY PRICING CLERK): Likely due to diuresis. Patient received 2 g of IV magnesium. Currently resolved. Will start patient on p.o. Supplement as patient is on Aldactone. Will continue to monitor and replace as needed. Hypertrophic cardiomyopathy 06/06/2019 Overview (08/17/2019): Cardiac Cath, 03/04/2018, [facility]: 1. Angiographically severe single-vessel coronary artery disease involving the nondominant right coronary artery. 2. Hyperdynamic left ventricular systolic function, estimated ejection fraction over 80% with near cavitary obliteration. 3. Severe hypertrophic cardiomyopathy with 110-120 mm gradient on pullback without provocation. 4. Normal left ventricular end diastolic pressure. 5. Patent stent in the celiac artery with stent fracture and high-grade focal in-stent restenosis. 6. Patent stent in the inferior mesenteric artery with mild in-stent restenosis. 7. Successful vascular access closure Assessment & Plan (02/07/2025 6:44 AM CDT): -Chronic, controlled -Currently takes amiodarone 100 mg daily, Lasix 40 mg daily, spironolactone 25 mg daily, metoprolol 25 mg -Follows with cardiology -Most recent EF of 69% -Patient denies any significant increase in fatigue, shortness for breath, weight gain, bilateral lower leg edema -Refill of amiodarone provided -Continue current treatment plan with specialist Orders: amiodarone (PACERONE) 100 mg tablet; Take 1 tablet (100 mg total) by mouth daily Assessment & Plan (08/24/2024 3:29 PM LAUNDRY PRICING CLERK): Chronic, controlled on her beta-leticia. No murmur is audible today. There is no swelling in her legs. Assessment & Plan (10/22/2023 1:14 PM LAUNDRY PRICING CLERK): She has some limitations in activity, partly due to her long history of tobacco use and partly due to cardiac issues. At the moment she seems pretty well compensated on current therapy including beta-leticia. Assessment & Plan (05/13/2023 3:19 PM CDT): She is on medical therapy and sees Dr. Jensen regularly. Heart tones today are distant in I actually do not hear a murmur. Assessment & Plan (10/20/2022 1:41 PM LAUNDRY PRICING CLERK): Exam is stable with a fairly minimal ejection murmur audible at this time. Continue current therapy, and keep followups with Cardiology. Assessment & Plan (08/25/2022 2:25 PM LAUNDRY PRICING CLERK): There is no murmur definitely audible on today's exam. She will continue medical therapy and keep her follow ups with Cardiology. Assessment & Plan (05/14/2022 2:51 PM CDT): She has a faint murmur. Dr. Jensen wanted to start her on a new medicine to hopefully decrease or slow heart muscle growth. So far it has not been approved. She will call the cardiology office for an update. Assessment & Plan (03/26/2022 12:10 PM CDT): She is on a beta-leticia. I do not hear a murmur today. She does have a early short right carotid bruit which we have previously heard. Assessment & Plan (02/23/2022 8:19 AM CDT): I do not hear any definite heart murmur today. She is on a beta-leticia, and heart rate is pretty well controlled. Assessment & Plan (11/04/2021 3:22 PM CDT): She is on medical therapy for this condition. I barely hear a murmur today. There is no swelling in her legs. Continue same, and follow-up with Cardiology. Assessment & Plan (08/05/2021 2:28 PM LAUNDRY PRICING CLERK): She is on a beta-leticia. Heart murmur is stable, audible primarily over the left lower sternal border. Assessment & Plan (05/09/2021 2:16 PM CDT): There is no definite heart murmur audible on exam today. She is on a beta- leticia. She will keep her follow ups with Cardiology. Assessment & Plan (02/06/2021 2:08 PM CDT): She does have a systolic murmur but it is not very loud today. She is on medical therapy. There is no swelling in her legs. Dr. Jensen approved furosemide to be taken as needed for increased shortness of breath or a gain of weight more than 3 lb above her baseline. Continue same. Assessment & Plan (07/25/2020 2:34 PM LAUNDRY PRICING CLERK): She has severe hypertrophic cardiomyopathy but seems to be doing well with a beta-leticia. Cardiac exam is stable with a faint systolic murmur at this time. Assessment & Plan (05/07/2020 7:09 PM CDT): She is on a beta leticia. She has a soft systolic murmur. She will keep her follow ups with Dr. Jensen. Assessment & Plan (04/05/2020 2:36 PM CDT): Exam is stable. Hopefully the current medication regimen is keeping her hypertrophic cardiomyopathy in a compensated state. She is also being treated for coronary disease and peripheral arterial disease. Assessment & Plan (03/08/2020 10:50 AM CDT): Patient has a known hx and has been managed on well on BB therapy. She however, is unable to afford to continue on bystolic. She started on Metoprolol XL 50mg today and blood pressure was noted to be low on recheck was 92/60. We will decrease dose to 25mg daily. Patient will monitor BP daily and will return in 4 weeks for recheck or sooner if needed. Assessment & Plan (02/15/2020 1:29 PM CDT): She asked about Bystolic which is somewhat expensive, a little over one dollar a pill. She wonders if something less expensive would work for her condition. We will run this by Cardiology and make any appropriate changes. 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 She seems to be tolerating activity reasonably well. She does get short of breath with exertion, but this could be partly or mostly due to her chronic lung disease. She gets an occasional chest pain, not very severe or long-lasting. She has a follow-up with Dr. More soon. She also sees Dr. Jensen periodically. Continue same. Assessment & Plan (01/11/2020 3:01 PM CDT): Her most recent angiogram about two years ago showed severe single-vessel coronary disease involving a non dominant right coronary artery, hyperdynamic LV function, and severe hypertrophic cardiomyopathy with significant gradient on the pullback. She has done remarkably well with medical therapy. She does have plans to see a front office specialist (sees hospice care sales consultant) at [facility] in about 10 days. Assessment & Plan (08/05/2019 3:22 PM LAUNDRY PRICING CLERK): She has been referred to a specialist at [place] by her front office specialist, Dr. Jensen. Today, I don't hear any heart murmur. She is on a beta-leticia. Continue same. Assessment & Plan (07/16/2019 4:39 PM LAUNDRY PRICING CLERK): Details regarding her hypertrophic cardiomyopathy are little unclear. We will check echocardiogram results. She also sees Dr. Jensen regularly, next visit is coming up in a couple of weeks. Currently, cardiac exam is unremarkable. Assessment & Plan (07/02/2019 10:46 PM LAUNDRY PRICING CLERK): Patient was already seen by Cardiology last month. She has an appointment with Dr. Jensen in July. Continue with [facility]. COPD (chronic obstructive pulmonary disease) Assessment & Plan (03/28/2025 4:41 PM CDT): -chronic, controlled -patient currently prescribed albuterol rescue inhaler, albuterol nebulizer solution -Follows with pulmonology -patient reports their emphysema is fairly well-controlled on current regimen -patient denies needing to use rescue inhaler frequently -no wheezing noted on exam -continue current treatment plan Lab Results Component Value Date VITB12 985 01/17/2020 -chronic, controlled -currently takes daily vitamin B12 supplement -most recent vitamin B12 level noted above -Will recheck lab value -continue current treatment plan Orders: Vitamin B12; Future Assessment & Plan (02/07/2025 6:44 AM CDT): -chronic, controlled -patient currently prescribed albuterol rescue inhaler -Follows with pulmonology -patient reports their emphysema is fairly well-controlled on current regimen -patient denies needing to use rescue inhaler frequently -no wheezing noted on exam -refill of nebulizer solution given -continue current treatment plan Orders: albuterol 2.5 mg /3 mL (0.083 %) nebulizer solution; Take 3 mL (2.5 mg total) by nebulization 4 (four) times a day as needed for wheezing Assessment & Plan (08/28/2024 2:14 PM LAUNDRY PRICING CLERK): Chronic, present for more than five years, controlled on her current bronchodilator therapy listed elsewhere. Unfortunately she is still smoking cigarettes. We encouraged her to quit. Assessment & Plan (02/10/2024 2:35 PM CDT): Chronic, fair control on albuterol nebulizer and rescue inhaler. Unfortunately, she picked up smoking again. We strongly urged cessation. Assessment & Plan (11/03/2023 5:13 AM CDT): She has an albuterol nebulizer and a rescue inhaler. She never picked up the Breo Ellipta prescribed by Pulmonary Medicine last May. She is chronically short of breath, especially with exertion. Today lungs are clear. Continue same. Assessment & Plan (07/02/2023 2:44 PM LAUNDRY PRICING CLERK): She has an albuterol inhaler and a nebulizer. She also uses the Anoro Ellipta maintenance inhaler. Lungs are clear with good air movement. Oxygen saturation is normal. She does get short of breath with exertion which is a baseline symptom. She admits to a bad cough about two weeks ago, but it appears to be resolved. Assessment & Plan (05/30/2023 6:59 PM CDT): Lung symptoms are definitely improved since she quit smoking. She is thinking of resuming cigarettes because of weight gain. I encouraged her to stay away from the cigarettes. Her weight has been stable over the past month. Assessment & Plan (01/22/2023 2:51 PM CDT): She has albuterol and nebulizers. She stopped the Stiolto because it was too expensive. She did not think it helped. Assessment & Plan (12/27/2022 12:30 PM CDT): Lungs are currently clear on her Stiolto Respimat inhaler and albuterol used as needed (metered dose and nebulizer). A recent chest x-ray was negative for infiltrate or mass. Assessment & Plan (12/18/2022 9:06 PM CDT): Admits she does not feel a difference with stiolto yet, she just started 3 days ago. Still using albuterol twice daily. Due to SOBOE will repeat CXR despite clear lung sounds. Continue current regimen. Assessment & Plan (12/18/2022 8:46 PM CDT): Admits SOBOE over past 2 weeks. Using nebs nightly and albuterol twice daily. Last PFTs were done 06/2018. Last CXR from 05/2022 was unremarkable. Lungs clear on exam, no acute findings or edema. Will start Siolto as directed, sample given in office today. Continue albuterol as needed. Encouraged smoking cessation. Assessment & Plan (10/20/2022 4:58 PM LAUNDRY PRICING CLERK): She has a chronic cough from smoking but denies feeling short of breath. She can not bring up phlegm above the level of her lower throat because the mucus is very thick. Today, lungs are clear and oxygen saturation is adequate. She uses her albuterol inhaler and nebulizer as needed. Continue same. Assessment & Plan (10/06/2022 6:07 PM LAUNDRY PRICING CLERK): Using albuterol nebs nightly, sometimes less. Lungs clear on exam today, no other acute findings. CXR from May was unremarkable. Continue current regimen. Assessment & Plan (08/25/2022 2:25 PM LAUNDRY PRICING CLERK): She has a chronic cough but is unable to bring up phlegm. Lungs are basically clear except for a few scattered coarse breath sounds. Assessment & Plan (06/21/2022 1:33 PM CDT): She took a breathing treatment this morning just before coming to the office. It made her feel a little shaky, but things her calming down. Lungs are clear and oxygen saturation is normal. Continue current therapy. Assessment & Plan (05/27/2022 9:32 AM CDT): She is doing pretty well. She does have some exertional dyspnea, but is not requiring oxygen. She has an albuterol inhaler for use as needed. Continue same. Assessment & Plan (03/26/2022 12:08 PM CDT): She continues to have shortness of breath with exertion. She continues to smoke. We encouraged cessation. Assessment & Plan (11/04/2021 3:25 PM CDT): She has a nebulizer and an albuterol inhaler. Oxygenation is adequate. Continue same. Assessment & Plan (08/05/2021 2:29 PM LAUNDRY PRICING CLERK): She has an albuterol inhaler for use as needed. Lungs are clear and oxygen saturation is satisfactory. Continue same. Assessment & Plan (05/09/2021 2:15 PM CDT): She is using her nebulizer several times a day but does not use it at night because it makes her heart race and keeps her up. She does have a rescue inhaler to carry with her in her purse. Lungs are clear and oxygen saturation is normal. She is trying hard to quit smoking and making some progress. Assessment & Plan (03/21/2021 12:24 PM CDT): On exam today only mild expiratory wheezing noted. She was encouraged to continue with nebulizer treatments at this time. We discussed the addition of a daily preventative inhaler such as Spiriva, patient however, declined samples as she has tried in the past and did not find it helpful. She was encouraged to stop smoking, and she reports she is using a nicotine patch currently to help her quit. We will continue to monitor for worsening or progression of symptoms. Assessment & Plan (02/06/2021 2:10 PM CDT): She is on a couple of inhalers. Lungs are clear and oxygen saturation is adequate. Continue same. Assessment & Plan (07/25/2020 2:35 PM LAUNDRY PRICING CLERK): Lungs are clear and oxygen saturation is satisfactory. She even denies feeling short of breath. She does smoke cigarettes, and is at risk. We will monitor clinically. Assessment & Plan (05/13/2020 5:01 PM CDT): She has some mild diffuse low-pitched wheezing, but seems comfortable. Oxygen saturation is adequate. She denies feeling significantly short of breath. She has a nebulizer at home for use as needed. She is still smoking but is actually trying to cut back. Follow up in 3 months. Assessment & Plan (04/05/2020 2:35 PM CDT): She has a nonproductive cough, most likely from smoking. Lungs are fairly clear, at least on the left. She does have some low-pitched wheezing on the right. She has a nebulizer at home which she uses as needed. She used to have other inhalers, but stopped using them because they apparently did not help much. Assessment & Plan (02/15/2020 1:30 PM CDT): She sees Dr. Ken tomorrow for a follow-up of her chronic lung disease. In the meantime, she has an inhaler to help keep things under control. I encouraged her to quit smoking. Assessment & Plan (01/18/2020 1:49 PM CDT): She is still smoking cigarettes. She has no interest in quitting. She has a cough but does not really bring up any phlegm, at least not that she can spit out. She does hear rattling around in her chest. Today, lungs are clear and oxygen saturation is normal. She has an albuterol inhaler which seems to keep things under control. Continue same. Assessment & Plan (01/11/2020 2:55 PM CDT): She is using albuterol has needed. She does get short of breath with exertion, but some of this is probably due to her underlying cardiac condition. She has cut back on smoking quite a bit, and is down to about 10 cigarettes a day. Continue cessation efforts. Assessment & Plan (07/08/2019 10:56 AM LAUNDRY PRICING CLERK): She has a long history of tobacco use and problems with COPD. She has a couple of inhalers at home and generally seems to be doing better now than when she was hospitalized recently. The albuterol does make her shake a little bit. Continue current therapy. Assessment & Plan (07/02/2019 10:49 PM LAUNDRY PRICING CLERK): Continue breathing treatments. Patient seems to be jittery from albuterol, will hold for now. Assessment & Plan (05/29/2019 5:37 AM CDT): Patient was diagnosed with COPD exacerbation. Continue with azithromycin, Solu-Medrol and duo nebs. Albuterol as needed per respiratory protocol. Patient is a heavy smoker and is not interested in quitting smoking. Discussed the again emphasized importance of smokin cessation Neuropathy 07/17/2018 Overview (08/05/2019): Bottoms of feet. Assessment & Plan (03/10/2021 4:15 PM CDT): Nail care, scanned note, Dr. Garcia. Assessment & Plan (08/17/2019 2:42 PM LAUNDRY PRICING CLERK): She complains of a burning sensation on the bottom of her feet. When she was still seeing Dr. Boudreaux, he was giving her B12 shots. I have no record of any B12 levels. We will check a level and probably have her start taking an oral supplement. We will also check a TSH level and consider other workup as needed. Chronic hypoxemic respiratory failure 05/19/2018 Overview (07/08/2019): Due to tobacco use. Assessment & Plan (08/28/2024 2:14 PM LAUNDRY PRICING CLERK): Chronic, present for many years, uncontrolled when she exerts herself but controlled at rest. Currently oxygen saturation on room air at rest is normal at 97%. Lungs are clear to auscultation. She has an albuterol nebulizer for use at home as well as a rescue inhaler to carry with her. Continue same. Assessment & Plan (11/03/2023 5:06 AM CDT): Oxygen saturation on room air today is actually normal. Lungs are clear. She did manage to quit smoking last year but picked up the habit again for a month, then quit again. We encouraged her to stay off the cigarettes completely. Assessment & Plan (01/22/2023 2:51 PM CDT): She is actually oxygenating very well on room air, at least here in the office at rest. At home she feels very short of breath with minimal exertion. She has to stop to rest after a few minutes of mild effort. She can not do her housework or other simple chores. On exam, lungs are clear. She only has trace edema in her legs. We did not make any changes to her medications at this time. She will see Dr. Jensen at the end of the month. Assessment & Plan (12/25/2022 4:36 PM CDT): She is actually doing well on her inhalers. She does not have oxygen at home. She feels short of breath with exertion. We checked ambulatory oxygen saturation and she did drop from 97% to 93%, but then recovered quickly so she does not need oxygen at home. Assessment & Plan (08/25/2022 2:24 PM LAUNDRY PRICING CLERK): Currently oxygen saturation on room air is normal. We will continue to monitor at regular office visits. Assessment & Plan (04/01/2022 12:16 PM CDT): She is actually doing pretty well at rest on room air with a saturation of 98%. Assessment & Plan (02/10/2022 2:42 PM CDT): She is actually doing very well after cutting back to about three cigarettes a day. Oxygen saturation on room air is now in a normal range. Lungs are basically clear. She has a nebulizer for use at nighttime and a rescue inhaler for use as needed. Assessment & Plan (11/04/2021 3:25 PM CDT): On room air in the office, oxygen saturation is normal. I believe she has oxygen at home for use as needed with exertion. Assessment & Plan (02/06/2021 2:10 PM CDT): She is not currently requiring any oxygen therapy. We will continue to monitor. Assessment & Plan (07/25/2020 2:36 PM LAUNDRY PRICING CLERK): At the moment, oxygen saturation is satisfactory. She is not requiring oxygen at home. Assessment & Plan (04/05/2020 2:34 PM CDT): Oxygen saturation is adequate. Lungs are fairly clear. Continue to monitor. Assessment & Plan (08/05/2019 3:18 PM LAUNDRY PRICING CLERK): She is doing a little better. She is smoking less. Oxygen saturation on room air is actually satisfactory. We will continue to monitor. Assessment & Plan (07/08/2019 10:55 AM LAUNDRY PRICING CLERK): She has low oxygen levels on blood gases but saturation is actually in a good range on room air. She is not currently using supplemental oxygen. She does have exacerbations from time to time and will keep a close eye on this. Follow-up in one month. 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 Angiographically severe single-vessel coronary artery disease involving the nondominant right coronary artery. 2. Hyperdynamic left ventricular systolic function, estimated ejection fraction over 80% with near cavitary obliteration. 3. Severe hypertrophic cardiomyopathy with 110-120 mm gradient on pullback without provocation. 4. Normal left ventricular end diastolic pressure. 5. Patent stent in the celiac artery with stent fracture and high-grade focal in-stent restenosis. 6. Patent stent in the inferior mesenteric artery with mild in-stent restenosis. 7. Successful vascular access closure. Assessment & Plan (05/18/2024 9:12 PM CDT): Chronic, present for more than 5 years, controlled on medical therapy including low-dose aspirin 81 mg daily and metoprolol XL 25 mg daily. Continue same. Assessment & Plan (11/03/2023 5:11 AM CDT): She denies current chest pain or pressure. She has on a good medical regimen. Continue same. Assessment & Plan (07/02/2023 2:44 PM LAUNDRY PRICING CLERK): She denies chest pain or pressure. She is on a good medical regimen. Continue same. Assessment & Plan (05/13/2023 3:19 PM CDT): She denies chest pain or pressure. Continue medical therapy. Assessment & Plan (01/22/2023 2:52 PM CDT): She denies chest pain or pressure. Cardiac function in general is good according to the diagnostic studies. She does have hypertrophic cardiomyopathy which may be contributing to her symptoms. She is on a beta-leticia. Assessment & Plan (08/25/2022 2:27 PM LAUNDRY PRICING CLERK): She had angiographically severe single coronary artery disease on cardiac catheterizations several years ago. More recently she had severe chest pressure and elevations of troponin during an episode of AFib/RVR. With control of heart rate, symptoms are pretty much resolved, with only occasional mild discomfort. She is on a good medical regimen. She will keep her follow ups with Cardiology. Assessment & Plan (06/06/2022 12:13 PM CDT): She had some chest pain that was different than her usual twinges, more of a pressure, so she went to the hospital and was found to be in atrial fibrillation with rapid ventricular response. She was treated with amiodarone and converted to sinus rhythm. She was started on Eliquis. Elevated troponins were noted, but felt to be demand ischemia, and not a myocardial infarction. She will follow-up with Dr. Jensen in about three weeks. Assessment & Plan (05/14/2022 2:50 PM CDT): She has occasional discomfort, but denies any significant new chest pain type symptoms at this time. She is on good medical therapy. Continue same. Assessment & Plan (03/26/2022 12:11 PM CDT): She was in the ER recently for re-evaluation of her ischemic heart disease. She has a severe narrowing of the non dominant right coronary artery and is on medical therapy. She has vague chest discomfort now and then. In the ER, EKG was unchanged. There was a mild elevation of troponin which we have seen in the past. We will discuss with Cardiology. Assessment & Plan (02/10/2022 2:45 PM CDT): She is on a good medical regimen for coronary artery disease. Continue same. Assessment & Plan (11/04/2021 3:22 PM CDT): She has occasional chest pains. She is on a good medical regimen. She sees Dr. Jensen periodically. Continue same. Assessment & Plan (08/05/2021 2:28 PM LAUNDRY PRICING CLERK): She denies having any chest pain or pressure. She will continue on medical therapy including her cholesterol medicine, a beta-leticia, aspirin and Plavix. Assessment & Plan (05/26/2021 1:13 PM CDT): She is on a good medical regimen. She has occasional chest pains which she things are due to indigestion. She will keep her follow ups with cardiology. Assessment & Plan (02/06/2021 2:07 PM CDT): She is on good medical therapy. She has fairly severe hypertrophic cardiomyopathy and is on medical management. She had angiographically severe single-vessel RCA disease. She had some intermittent sharp chest pains in the retrosternal area for a few days about a week ago, but they are gone. Continue maximal medical therapy. Assessment & Plan (07/25/2020 2:34 PM LAUNDRY PRICING CLERK): She has single-vessel coronary artery disease in the RCA which is being managed medically. She denies having any chest pains. Continue current therapy. Assessment & Plan (05/07/2020 7:16 PM CDT): She currently denies having classic anginal symptoms, although her chest does feel heavy at the end of the day. She is on a good medical regiment for known single vessel CAD in the RCA. Continue same. Assessment & Plan (04/05/2020 2:37 PM CDT): She continues on medical therapy of single-vessel coronary disease in the nondominant right coronary artery. She denies having any recent chest pain. Assessment & Plan (01/19/2020 12:16 PM CDT): She has a lot of vascular disease including severe single-vessel coronary disease in the nondominant right coronary artery which is being managed medically. She denies having any recent chest pains. Continue same. Assessment & Plan (01/18/2020 1:53 PM CDT): She has severe single-vessel coronary disease that is being managed medically. She gets occasional chest pains, not severe or long-lasting. Continue current therapy and keep followups with Dr. Jensen. Irritable bowel syndrome wit h both constipation and diarrhea 03/27/2017 Overview (07/08/2019): Sees Dr. Garay Assessment & Plan (10/06/2022 6:22 PM LAUNDRY PRICING CLERK): Back and forth between diarrhea and constipation for 3-4 months. Takes immodium and OTC stool softners PRN. No acute findings on exam. Encouraged metamucil and high fiber diet. Stay hydrated. Concerned amiodarone is causing constipation. Consulted with Dr. Jensen about decreasing dose and he does not think it armenta at this time. Extensive gut vascular disease noted, last CTA in January. Last colonoscopy in 2016-recommended 5 year - She is due. Continue OTC measures for now and stay hydrated. Follow in 2 weeks. Assessment & Plan (05/13/2020 5:02 PM CDT): She was in the hospital about a month ago with possible acute gastroenteritis, see previous office note for details. She continues to have several loose bowel movements in the morning, but seems to be OK the rest of the day. This pattern of morning diarrhea is a long-standing symptom which is unchanged. She denies current abdominal pain or blood in the stool. Some of her GI symptoms could be ischemic/vascular in etiology, but they seem to be fairly mild at this time, if not mostly resolved. We will monitor clinically and obtain additional evaluation as needed. Assessment & Plan (03/26/2020 3:19 PM CDT): Some of her recent GI symptoms could be due to irritable bowel or to vascular disease involving the bowel, but acute symptoms have resolved. Assessment & Plan (01/28/2020 12:09 PM CDT): She has a long history of diarrhea, possibly partly due to vascular disease of the bowel, chronic use of Protonix, and other factors. It seems unchanged recently so we will continue to monitor clinically. Assessment & Plan (07/08/2019 10:58 AM LAUNDRY PRICING CLERK): She has 3-4 loose bowel movements in the morning after her coffee. This is a longstanding pattern. She denies having any blood in the stools. She has seen Dr. Garay and was diagnosed with irritable bowel. Continue to monitor. Consider a fiber supplement or other treatment as needed. Assessment & Plan (02/02/2018 2:47 PM CDT): Continues with 3-5 loose stools within 30 mins every morning after coffee and then 23 hours no problem. Recently found to have hemoccult pos stools ( on plavix). EGD and colonoscopy 06/01 roids only. Discussed repeat endo eval but she thinks that the recent endo eval plus the plavix are sufficient explanation. I agree . Return prn. Assessment & Plan (03/27/2017 3:35 PM CDT): This is a chronic problem. She is up-to-date on routine colonoscopy. We discussed treatment options at length. In reviewing treatment options she recall the name Bentyl as being beneficial in the past. We did provide a prescription today. She has strict instructions to contact me with any change in, worsening, or non improvement in her condition. Age-related osteoporosis wit jasonut current pathological fracture 03/27/2017 Overview (07/23/2019): Follow up bone density at [facility] 07/21/19: 1. WHO CLASSIFICATION FOR LUMBAR SPINE IS OSTEOPENIA. 2. WHO CLASSIFICATION FOR HIP IS OSTEOPOROSIS Assessment & Plan (03/28/2025 4:41 PM CDT): -chronic, controlled -last DEXA bone scan was October 2021 -currently takes vitamin D3 supplement -encourage patient to continue weight-bearing exercises and vitamin-D/calcium supplement -Dexa bone scan scheduled -continue current treatment plan Orders: Vitamin D 25 hydroxy; Future Assessment & Plan (05/18/2024 9:10 PM CDT): Chronic, present for more than five years. She takes a vitamin D supplement. She is overdue for a follow-up bone density which we ordered today. Assessment & Plan (02/23/2022 8:22 AM CDT): She is on calcium and vitamin-D. She has been having trouble with low back pain and got a Medrol Dosepak recently which helped a lot. The recent CT angiogram of the aorta reported some mild DJD in the lumbar spine, but no compression fracture or other major pathology. Assessment & Plan (11/04/2021 3:26 PM CDT): She continues on calcium and vitamin-D supplementation. Sometimes she forgets to get it from store. I encouraged compliance with therapy. Assessment & Plan (08/05/2021 2:31 PM LAUNDRY PRICING CLERK): She has osteoporosis and takes calcium plus vitamin-D. We recommended a follow- up DEXA, but she does not want another test right now. We discussed other options for treatment of osteoporosis including Fosamax, Prolia, Forteo. She does not want to take another medicine right now. Assessment & Plan (07/25/2020 2:36 PM LAUNDRY PRICING CLERK): She is taking calcium and vitamin D. Continue same. Consider intervention with a medication for osteoporosis. Assessment & Plan (03/27/2017 3:33 PM CDT): We reviewed her bone density results and FRAX risk in detail. Patient is a candidate for pharmacological therapy. I would avoid oral biphosphonates in this individual given history of reflux and gastric complaints. She would be an appropriate candidate for Prolia. She understands she would only need this injection every 6 months. We discussed the benefits of this medication as well as potential side effect. She is disinterested in any prescriptions for this regardless of our conversation. She was agreeable to [id number] supplements. We will have her begin Oscal or Caltrate [id number]. In addition, we will add a vitamin-D level to her upcoming lab in a couple of weeks. She declined to have a blood draw today. I have also recommended increase in weight-bearing activity. She states she does very little exercise. She is very rarely outside. I recommended she add a leisurely walk to her daily routine to help strengthen her bones. The rationale behind this recommendation was discussed at length. Further direction pending laboratory results. I would recommend repeating her bone density in 1-2 years to evaluate her response to this conservative approach. Osteoarthritis of carpometacarpal (CMC) joint of thumb 01/04/2017 PND (post-nasal drip) 02/15/2016 Overview (11/29/2020): Probably allergic problem, happens every spring. Assessment & Plan (05/14/2022 2:52 PM CDT): She needed a refill of Flonase which we sent in. Assessment & Plan (02/10/2022 2:47 PM CDT): She uses Flonase as needed during her allergy season which is primarily every spring. Assessment & Plan (05/26/2021 1:21 PM CDT): She has Flonase for use as needed. Continue same. 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 She does have diarrhea, but it is chronic, nothing new. Denies blood in the stools or abdominal pain. Continue medications to reduce the risk of recurrent vascular thrombosis. Assessment & Plan (02/23/2017 2:08 PM CDT): Post stent asymptomatic Essential hypertension 08/23/2012 Overview (11/21/2016): Hypertension Assessment & Plan (03/28/2025 4:41 PM CDT): BP Readings from Last 3 Encounters: 03/28/25 110/78 02/21/25 151/76 02/06/25 126/72 -chronic, at goal of <140/90 -currently taking Lasix 60 mg, metoprolol 25 mg -patient reports checking blood pressure regularly at home -encourage patient to continue low-sodium diet -continue current treatment plan Assessment & Plan (12/27/2024 9:47 PM CDT): BP Readings from Last 3 Encounters: 12/27/24 114/71 11/01/24 126/74 09/08/24 120/60 -chronic, at goal of <140/90 -currently taking Lasix 60 mg, metoprolol 25 mg -patient reports checking blood pressure regularly at home -encourage patient to continue low-sodium diet -continue current treatment plan Assessment & Plan (08/24/2024 3:29 PM LAUNDRY PRICING CLERK): Chronic, present for more than 10 years, controlled on current medications listed elsewhere. Continue same and follow-up in three months. Assessment & Plan (05/16/2024 2:39 PM CDT): Chronic, present for 10 or more years, currently controlled on metoprolol XL 25 mg daily and her diuretics (furosemide 60 mg daily and metolazone 2.5 mg twice weekly if body weight exceeds 139-140 lb). Continue same, and follow-up in three months with labs. Assessment & Plan (03/11/2024 9:51 AM CDT): Chronic, at goal. BP stable in office today on current therapy. No acute findings on exam. Recent labs unremarkable except for mildly elevated lipase. CT A/P was unremarkable. ECHO from 01/2023 showed mod-sever MVR with EF 75%. Continue metoprolol, lasix, and metolazone as rxd. low salt diet. Assessment & Plan (02/10/2024 2:35 PM CDT): Chronic, controlled on metoprolol and furosemide. Continue same. Assessment & Plan (11/15/2023 7:18 PM CDT): BP stable in office today on current therapy. No acute findings on exam. Continue current regimen and low salt diet. Assessment & Plan (10/22/2023 1:14 PM LAUNDRY PRICING CLERK): Blood pressure is in a good range on current therapy. Follow-up in three months. Assessment & Plan (07/02/2023 2:44 PM LAUNDRY PRICING CLERK): Blood pressure is in a good range on current therapy. Continue same. Follow-up as scheduled August 12. Assessment & Plan (05/13/2023 3:18 PM CDT): Blood pressure is in good range on current therapy. She denies chest pain. She is on a good medical regimen. She sees Dr. Jensen regularly. Continue same. Assessment & Plan (01/22/2023 2:51 PM CDT): Blood pressure is in a good range on current therapy. Continue same. Assessment & Plan (12/18/2022 9:04 PM CDT): BP stable in office today on current therapy, HR 50. EKG shows sinus benito. Will decrease Metoprolol to 25mg daily. Continue all other meds as rxd, low salt diet. Keep follow with cardiology next month. Assessment & Plan (10/06/2022 6:05 PM LAUNDRY PRICING CLERK): BP stable in office today on current meds. No acute findings on exam. Continue current medication regimen and low salt diet. Keep follow with Dr. Jensen as scheduled in January. Assessment & Plan (08/25/2022 2:25 PM LAUNDRY PRICING CLERK): Blood pressure is in a good range on current therapy. Continue same. Assessment & Plan (05/14/2022 2:52 PM CDT): Blood pressure is in a good range on current therapy. She takes furosemide as needed to control any fluid retention. She is also on metoprolol and spironolactone. Lab Results Component Value Date GLUCOSE 98 05/07/2022 CALCIUM 9.4 05/07/2022 SODIUM 141 05/07/2022 POTASSIUM 4.2 05/07/2022 CO2 26 05/07/2022 CHLORIDE 106 05/07/2022 BUNSER 24 05/07/2022 CREATININE 0.93 05/07/2022 Assessment & Plan (03/26/2022 12:08 PM CDT): Blood pressure is in a good range on current therapy. Recent labs were stable. Follow-up in about six weeks as scheduled. Lab Results Component Value Date GLUCOSE 85 03/24/2022 CALCIUM 9.8 03/24/2022 SODIUM 140 03/24/2022 POTASSIUM 4.4 03/24/2022 CO2 26 03/24/2022 CHLORIDE 106 03/24/2022 BUNSER 22 03/24/2022 CREATININE 0.90 03/24/2022 Assessment & Plan (02/10/2022 2:43 PM CDT): Blood pressure is in a reasonable range on current therapy. She denies chest pain or pressure. Continue same. Assessment & Plan (11/04/2021 3:23 PM CDT): Blood pressure is in a good range on current therapy. Continue same. Monitor labs Assessment & Plan (08/05/2021 2:28 PM LAUNDRY PRICING CLERK): Blood pressure is in a good range on current therapy. Continue same. We will check follow-up labs. Assessment & Plan (05/09/2021 2:16 PM CDT): Blood pressure is in a good range on current therapy. Labs are stable. Continue same, and follow-up in 3 months. Lab Results Component Value Date GLUCOSE 114 05/02/2021 CALCIUM 9.9 05/02/2021 SODIUM 141 05/02/2021 POTASSIUM 4.7 05/02/2021 CO2 28 05/02/2021 CHLORIDE 104 05/02/2021 BUNSER 27 (H) 05/02/2021 CREATININE 1.02 05/02/2021 Assessment & Plan (02/06/2021 2:10 PM CDT): Blood pressure is in a good range on current therapy. Recent labs are stable. Continue same. Assessment & Plan (07/25/2020 2:34 PM LAUNDRY PRICING CLERK): Blood pressure is in a good range on current therapy. Continue same and follow- up in six months. Lab Results Component Value Date GLUCOSE 108 07/18/2020 CALCIUM 9.9 07/18/2020 SODIUM 142 07/18/2020 POTASSIUM 4.9 07/18/2020 CO2 29 07/18/2020 CHLORIDE 104 07/18/2020 BUNSER 27 (H) 07/18/2020 CREATININE 1.04 07/18/2020 Assessment & Plan (05/07/2020 7:06 PM CDT): Blood pressure is in a good range on current therapy. Continue same and follow up in 3 months. Assessment & Plan (04/28/2020 3:13 PM CDT): Blood pressure is in a low normal range. She does not have complaints of dizziness. Continue current medical therapy which is aimed primarily ather her hypertrophic cardiomyopathy. Assessment & Plan (03/19/2020 5:50 PM CDT): Cont home meds and monitor Assessment & Plan (01/18/2020 1:50 PM CDT): Blood pressure is in a good range on current therapy. Recent kidney function is normal. Continue same, and follow-up in six months. Lab Results Component Value Date GLUCOSE 103 01/17/2020 CALCIUM 9.4 01/17/2020 SODIUM 142 01/17/2020 POTASSIUM 3.9 01/17/2020 CO2 26 01/17/2020 CHLORIDE 105 01/17/2020 BUNSER 15 01/17/2020 CREATININE 0.93 01/17/2020 Assessment & Plan (01/11/2020 2:56 PM CDT): Blood pressure taken at home is normal. She does have a little difficulty with her blood pressure cuff in that it produces variable results. Previous measurements in healthcare facilities also shows some variability. Continue current therapy for now, and monitor for any adverse trends. Assessment & Plan (08/05/2019 3:18 PM LAUNDRY PRICING CLERK): Blood pressure is in a good range on current therapy. Continue same and follow- up in three months. Assessment & Plan (07/08/2019 10:57 AM LAUNDRY PRICING CLERK): Pressure is in a good range on current therapy. Continue same. Due to current medications that place her at risk for electrolyte issues, we will check a follow-up lab next week. Follow-up in the office in one month. Assessment & Plan (05/29/2019 5:39 AM CDT): Blood pressure is slightly elevated. Will give 1 dose of IV Lasix. Restart home medications Assessment & Plan (07/03/2017 2:32 PM LAUNDRY PRICING CLERK): Stable. Pt was advised of continuing heart healthy DASH diet, increase exercise as tolerated, and continuing to monitor for any lower leg edema, headaches, changes in vision, or facial flushing. Continue ASA and anti-hypertensives as prescribed. 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 Assessment & Plan (08/28/2024 2:16 PM LAUNDRY PRICING CLERK): Chronic, present for 10 or more years, asymptomatic except for occasional bouts of abdominal pain. There is also a mild to moderate increase in lipase which could be due to ischemic changes in the pancreas. Abdominal exam today is benign although she does complain of some mild left lower quadrant tenderness of uncertain cause or significance. She also notes some rectal bleeding which she thinks is due to hemorrhoids, but could be ischemic. She is on maximal medical therapy. Some of the bleeding could be due to dose adjusted apixaban which she takes for paroxysmal atrial fibrillation. We will monitor with frequent office visits and lab tests. Return in three months. Assessment & Plan (10/22/2023 1:15 PM LAUNDRY PRICING CLERK): She is gaining weight, so I do not think there has been a recurrence of any mesenteric circulatory problem. Assessment & Plan (08/25/2022 2:27 PM LAUNDRY PRICING CLERK): No new abdominal symptoms reported other than constipation attributed by the patient to amiodarone which was started several months ago for atrial fibrillation. We recommended that she try a fiber supplement. Assessment & Plan (03/26/2022 12:12 PM CDT): She has had celiac and inferior mesenteric artery stents. A recent CT angiogram showed patent stents with some distal disease in the celiac artery. She complains of nausea alleviated by eating, but also has diarrhea almost every morning. After three or four watery stools, she feels emptied out and much better. There is no gross blood in the stools. A recent workup in the emergency room was negative for evidence of infection. Abdominal exam today is benign. We will discuss with Cardiology. Assessment & Plan (11/04/2021 3:21 PM CDT): She denies abdominal pain. She does have frequent bowel movements which could be a manifestation of ischemic bowel, but no bleeding from the stools. We will continue medical therapy. Assessment & Plan (02/06/2021 2:06 PM CDT): She seems to be doing okay. She is not losing weight. She has occasional left lower quadrant pain which might be from ischemic symptoms. No blood in the stools. She does have frequent diarrhea. She actually considers this an improvement over her previous constipation. She had a normal colonoscopy about five years ago except for hemorrhoids. She denies any current blood in the stools. Assessment & Plan (04/01/2020 4:49 PM CDT): This is felt to be asymptomatic at this time after several interventions between 2009 and 2015, but we will need to keep possible ischemic etiologies in mind. Continue aspirin and Plavix. She did miss a dose of Plavix yesterday because of just not feeling well. Assessment & Plan (05/29/2019 5:39 AM CDT): Currently stable and asymptomatic. Continue monitoring Mixed hyperlipidemia 07/05/2012 Overview (11/21/2016): Hyperlipidemia Assessment & Plan (03/28/2025 4:41 PM CDT): -chronic, controlled -currently takes atorvastatin 80 mg daily -Discussed importance of well-balanced diet -will recheck lab values at future visit -continue current treatment plan Orders: Lipid panel; Future Assessment & Plan (12/27/2024 9:49 PM CDT): -chronic, controlled -currently takes atorvastatin 80 mg daily -Discussed importance of well-balanced diet -will recheck lab values at future visit -continue current treatment plan Assessment & Plan (08/24/2024 3:30 PM LAUNDRY PRICING CLERK): Chronic, present for more than 10 years, controlled on high-dose atorvastatin. Continue same. Assessment & Plan (05/18/2024 9:12 PM CDT): Chronic, present for more than 5 years, controlled on atorvastatin 80 mg daily. Continue same. Assessment & Plan (02/10/2024 2:36 PM CDT): Chronic, fair control on atorvastatin 80 mg daily. Continue same. Assessment & Plan (10/22/2023 1:15 PM LAUNDRY PRICING CLERK): She is on high-dose generic Lipitor. We will check lipids before her follow-up in three months. Assessment & Plan (05/13/2023 3:20 PM CDT): She takes Lipitor, seems to be tolerating it well. Continue same. Assessment & Plan (04/19/2023 2:59 PM CDT): She complains of upper arm muscle pain for the past 3 days. We are cutting her generic Lipitor 80 mg dose in half to see if this helps the muscle pain in her arms. Assessment & Plan (01/22/2023 2:54 PM CDT): Continue generic Lipitor at high-dose due to the severe underlying peripheral vascular disease. Assessment & Plan (08/25/2022 2:28 PM LAUNDRY PRICING CLERK): She is on high-dose generic Lipitor, tolerating well. Continue same. Assessment & Plan (05/14/2022 2:52 PM CDT): She did not tolerate Zetia which was prescribed to hopefully lower her LDL a bit more. However, she did not tolerate it. It caused nausea and vomiting. She is tolerating high-dose generic Lipitor. Continue same. Lab Results Component Value Date CHOL 156 05/07/2022 CHOL 172 05/02/2021 CHOL 158 07/18/2020 Lab Results Component Value Date HDL 43 05/07/2022 HDL 47 05/02/2021 HDL 52 07/18/2020 Lab Results Component Value Date LDLCALC 90 05/07/2022 LDLCALC 96 05/02/2021 LDLCALC 86 07/18/2020 LDL 73 07/28/2016 LDL 117 10/19/2015 LDL 138 (H) 01/30/2015 Lab Results Component Value Date TRIG 113 05/07/2022 TRIG 146 05/02/2021 TRIG 101 07/18/2020 Assessment & Plan (03/26/2022 12:12 PM CDT): She is on high-dose generic Lipitor, seems to be tolerating it well. Continue same. Lab Results Component Value Date ALT 14 03/24/2022 AST 21 03/24/2022 ALKPHOS 77 03/24/2022 BILITOT 0.4 03/24/2022 Assessment & Plan (02/10/2022 2:46 PM CDT): She is tolerating high-dose generic Lipitor. She tried taking Zetia prescribed by Dr. Jensen, but it caused nausea and vomiting so she stopped taking it. We removed it from her list. Assessment & Plan (12/26/2021 2:14 PM CDT): She is taking atorvastatin 80 mg daily. Zetia was added by Cardiology because LDL was slightly higher than before. We discussed treatment of lipids which includes appropriate diet. She is not terribly careful about her fat intake, and plans to work on this. Lab Results Component Value Date CHOL 172 05/02/2021 CHOL 158 07/18/2020 CHOL 158 05/19/2017 Lab Results Component Value Date HDL 47 05/02/2021 HDL 52 07/18/2020 HDL 49 05/19/2017 Lab Results Component Value Date LDLCALC 96 05/02/2021 LDLCALC 86 07/18/2020 LDLCALC 75 05/19/2017 LDL 73 07/28/2016 LDL 117 10/19/2015 LDL 138 (H) 01/30/2015 Lab Results Component Value Date TRIG 146 05/02/2021 TRIG 101 07/18/2020 TRIG 168 (H) 05/19/2017 Assessment & Plan (11/04/2021 3:21 PM CDT): She is on high-dose generic Lipitor, seems to be tolerating it well. Continue same. Assessment & Plan (08/05/2021 2:27 PM LAUNDRY PRICING CLERK): She is on high-dose generic Lipitor, tolerating well. Continue same. Assessment & Plan (05/09/2021 2:22 PM CDT): She is on high-dose generic Lipitor, tolerating well. Lipids look reasonably favorable. Lab Results Component Value Date CHOL 172 05/02/2021 CHOL 158 07/18/2020 CHOL 158 05/19/2017 Lab Results Component Value Date HDL 47 05/02/2021 HDL 52 07/18/2020 HDL 49 05/19/2017 Lab Results Component Value Date LDLCALC 96 05/02/2021 LDLCALC 86 07/18/2020 LDLCALC 75 05/19/2017 LDL 73 07/28/2016 LDL 117 10/19/2015 LDL 138 (H) 01/30/2015 Lab Results Component Value Date TRIG 146 05/02/2021 TRIG 101 07/18/2020 TRIG 168 (H) 05/19/2017 Lab Results Component Value Date ALT 13 05/02/2021 AST 28 05/02/2021 ALKPHOS 71 05/02/2021 BILITOT 0.6 05/02/2021 Assessment & Plan (02/06/2021 2:06 PM CDT): She is on high-dose generic Lipitor, continue same. We will check lipids before her next visit in three months. Assessment & Plan (07/25/2020 2:33 PM LAUNDRY PRICING CLERK): We reviewed her recent lipid profile which looks reasonably favorable on high- dose generic Lipitor. Continue same. Lab Results Component Value Date CHOL 158 07/18/2020 CHOL 158 05/19/2017 CHOL 157 12/18/2016 Lab Results Component Value Date HDL 52 07/18/2020 HDL 49 05/19/2017 HDL 49 12/18/2016 Lab Results Component Value Date LDLCALC 86 07/18/2020 LDLCALC 75 05/19/2017 LDLCALC 80 12/18/2016 LDL 73 07/28/2016 LDL 117 10/19/2015 LDL 138 (H) 01/30/2015 Lab Results Component Value Date TRIG 101 07/18/2020 TRIG 168 (H) 05/19/2017 TRIG 138 12/18/2016 Assessment & Plan (03/19/2020 5:49 PM CDT): Hold statin until GI symptoms improved Assessment & Plan (07/02/2019 10:49 PM LAUNDRY PRICING CLERK): Continue statin Assessment & Plan (05/29/2019 5:40 AM CDT): On statin and Plavix Assessment & Plan (07/03/2017 2:33 PM LAUNDRY PRICING CLERK): Stable based upon last lipid panel. Continue aspirin therapy, Lipitor therapy, heart healthy diet, smoking cessation was again stressed in office today to which he refused. Follow up with Dr. boudreaux into office in 4 months regarding condition and labs Peripheral arterial disease ([facility]) 06/17/2010 Overview (12/21/2021): Multiple celiac stents [id number]. Absent pedal pulses. Carotid doppler 08/26/2021: Plaque in the right internal carotid artery is mild calcified. The right internal carotid artery has 0-39% stenosis. Plaque in the left internal carotid artery is moderate calcified. The left internal carotid artery has 60-79% stenosis. Bilateral antegrade vertebral flow. A follow-up study may be performed after 6 months. Follow up DAVID, 12/20/2021: Moderate arterial insufficiency at rest in the right lower extremity with ankle-brachial index 0.66. Biphasic waveform at the ankle. Mild arterial insufficiency at rest in the left lower extremity with ankle-brachial index 0.83. Biphasic waveform at the ankle. Assessment & Plan (12/27/2024 9:50 PM CDT): -Chronic, controlled -Currently takes aspirin 81 mg -Patient denies any significant changes in perfusion to extremities -Continue current treatment plan Assessment & Plan (02/10/2024 2:38 PM CDT): Chronic, fair control. She has reasonable distal perfusion in her feet with no areas of ischemic ulceration or gangrene. Continue medical therapy. Assessment & Plan (05/27/2022 9:34 AM CDT): She has had multiple stents. She is on good medical therapy. She keeps her follow ups with Dr. Jensen. Unfortunately, she is still smoking. She has no plans to quit. Assessment & Plan (02/10/2022 2:47 PM CDT): She has had multiple stents in her celiac artery. She has moderate carotid disease and moderate lower extremity arterial disease. This is being managed medically. Assessment & Plan (01/07/2022 1:29 PM CDT): She complains that her legs feel heavy. She thinks they are swollen. Exam shows no significant peripheral edema. Her symptoms could be due to poor peripheral circulation. In fact, recent noninvasive vascular studies show significant bilateral peripheral arterial disease. An angiogram is planned. She will follow-up with Dr. Jensen about all this. She is not sure she would agree to a catheterization and stents because she has experienced persistent soreness in the right groin from other catheterizations. On the other hand, she would like to get rid of the current symptoms in her legs. She will keep her follow ups with Dr. Jensen. Assessment & Plan (05/09/2021 2:20 PM CDT): She has helped dorsal pedal pulses today. Posterior tibial pulses are not detected. There is mild distal coolness in her feet and capillary refill is 2-3 seconds bilaterally. She does complain of a heaviness or fullness in her thighs when she walks. This might be a manifestation vascular or neurogenic claudication. 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 We will monitor clinically. Assessment & Plan (02/19/2021 8:24 AM CDT): Her pulses are actually improved. She has definite palpable dorsal pedal pulses today. She does have a right carotid bruit. We checked the record and she had carotid dopplers about a year ago that were negative for significant stenosis. We will continue current medical therapy. Assessment & Plan (04/28/2020 3:13 PM CDT): She had to cancel her appointmen in October with Dr. Jensen because of COVID-19. She plans to reschedule it. Assessment & Plan (01/18/2020 1:55 PM CDT): She has multiple stents in her celiac artery, and in the past has not had palpable pedal pulses, but she is clearly palpable dorsal pedal pulses today. There is no evidence of ischemia at this time. Continue current medications and monitor clinically. She does have right carotid bruit, possible left carotid bruit. She says she used to get carotid Dopplers every year, but I do not see a record of any testing. We will order carotid Dopplers and consider intervention as needed. Assessment & Plan (08/05/2019 3:21 PM LAUNDRY PRICING CLERK): Today, she has palpable pulses in her feet which are well perfused. She does complain of cramps in her toes and feet, not just at night, sometimes at rest. I suspect she may have some small vessel disease as well, but there's no obvious ischemia at this time requiring intervention. She will continue her anti-platelet therapy and cholesterol medicine. Assessment & Plan (07/16/2019 4:45 PM LAUNDRY PRICING CLERK): She has a history of multiple celiac artery stents placed between 2009 and 2015. Things seem to have stabilized in this regard. On exam today, she has not palpable pedal pulses, and has some cyanotic changes in the feet with delayed capillary refill. However, she denies claudication. We will continue to monitor closely. If not already done, we will request appropriated diagnostic testing. Gastroesophageal reflux disease 04/01/2007 Overview (12/14/2019): GERD (gastroesophageal reflux disease), multiple endoscopies over the years, mostly showing mild reactive changes. Assessment & Plan (05/18/2024 9:11 PM CDT): Chronic, present in some form or another for more than 15 years, currently minimally symptomatic. We had a long discussion about acid suppression therapy. For awhile she was experiencing congestion in the back of her throat that was interpreted as a possible manifestation of acid reflux. She was taking pantoprazole for this symptom. Due to the chronic kidney disease, we discontinued pantoprazole and put her on famotidine instead. She did not recall any of the discussions surrounding this matter. She stopped taking famotidine. The g urgling in the back of her throat seems fairly minimal so we will monitor clinically without therapy. Assessment & Plan (03/26/2022 12:09 PM CDT): She is on Protonix. She has been having trouble with nausea lately but it improved with eating a cracker or apple. She denies emesis or blood in the stools. Abdominal exam is benign. We will monitor clinically. Assessment & Plan (02/10/2022 2:44 PM CDT): If she does not take Protonix, symptoms recur pretty quickly. She tried H2 blockers but they did not help. She wondered about taking it every other day to reduce associated risks of kidney disease, osteoporosis, and dementia. She will give that a try for awhile. Assessment & Plan (02/19/2021 8:12 AM CDT): She denies heartburn as such, but does get a tickle in her throat after eating which causes a cough. In fact, she has been coughing more frequently for the past months or so. She would like to get a chest x-ray which we ordered. She also asked about possible side effects of long-term PPI therapy. The Protonix has definitely helped the tickle in her throat. When she stopped taking it for few days, the symptoms returned. She does not think she has ever tried Pepcid, so we will give that a try for awhile. Return in three months. Assessment & Plan (01/28/2020 12:06 PM CDT): She tried going off the Protonix as we had discussed at her last visit. I think she tried some Pepcid instead, but it was ineffective. She went back on Protonix which she had at home. We sent in a refill. We did discuss the risks of long-term PPI therapy. She has been taking it for two or three years now with good control of symptoms. She does note some difficulty swallowing and has to cut her food into small pieces. I recommended that we look into this further with a barium esophagram, but the patient does not want to pursue any testing at this time. We will review again at her follow-up. Assessment & Plan (01/19/2020 12:14 PM CDT): She has a history of acid reflux dating back many years and evaluated by multiple endoscopies which mostly showed mild reactive changes. Her Protonix was due to be refilled. She has been on it for several years, it was first prescribed by a former PCP. She read that she should not take it for more than two weeks at a time. She decided to let herself go off the Protonix when it runs out, and call for alternative treatment if her symptoms recur. I would recommend something like Pepcid/famotidine 20 mg once or twice a day. She will call to initiate this prescription if she feels it is needed. Assessment & Plan (07/02/2019 10:49 PM LAUNDRY PRICING CLERK): Continue PPI Assessment & Plan (07/03/2017 2:34 PM LAUNDRY PRICING CLERK): Asymptomatic in office today. Continue on Protonix for GERD control along with seeing Dr. 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 Assessment & Plan (02/23/2017 2:08 PM CDT): Symptoms controlled Tobacco use disorder 06/17/1958 Overview (11/21/2016): Smoker Assessment & Plan (03/28/2025 4:41 PM CDT): Tobacco Use: High Risk (03/28/2025) Patient History Smoking Tobacco Use: Every Day Smokeless Tobacco Use: Never Passive Exposure: Not on file -stable, not at goal -patient reports they currently smokes daily -patient reports they have been trying to cut back, but they are not ready to quit -patient educated on benefits of smoking cessation -encouraged patient to utilize resources such as 4-632-AKUR-YES -continue current treatment plan -total time spent on tobacco cessation education 3 minutes Assessment & Plan (05/18/2024 9:13 PM CDT): Chronic, present for many years, uncontrolled. She briefly quit smoking, but relapsed about three months ago. She says it is like praveen hong for her. It brings her great pleasure. Assessment & Plan (02/10/2024 2:41 PM CDT): Chronic, uncontrolled. Unfortunately she picked up smoking again. We again encouraged cessation. Assessment & Plan (04/17/2023 2:50 PM CDT): She managed to quit smoking and has stayed off cigarettes for three months now! I congratulated her on the accomplishment. She is much less short of breath and can do just about anything she wants to do. She is worried about weight gain though. We will see her back in a week to discuss other issues such as trouble sleeping. Assessment & Plan (01/22/2023 2:57 PM CDT): She managed to quit smoking three days ago. She is wearing a nicotine patch. I congratulated her on the accomplishment. Assessment & Plan (12/25/2022 4:58 PM CDT): She does continue to smoke. We again encouraged cessation, but she says it is her only pleasure in life. Assessment & Plan (12/18/2022 9:02 PM CDT): Willing to quit, has cut back to 3-4 cigarettes per day. lungs clear. Encouraged continued smoking cessation. Assessment & Plan (05/14/2022 2:53 PM CDT): We again strongly urged smoking cessation. Assessment & Plan (03/26/2022 12:13 PM CDT): She continues to smoke cigarettes. We continue to encourage complete cessation. Assessment & Plan (02/23/2022 8:22 AM CDT): She continues to smoke cigarettes, but has cut back significantly. Currently she is only smoking 3-4 cigarettes a day, and only smokes about 1/2 of each cigarette. I congratulated her on this accomplishment and encouraged complete cessation. Assessment & Plan (12/26/2021 2:16 PM CDT): In addition to diet reform, she needs to quit smoking, but has so far been unable to make a dent in her habit. She wears a nicotine patch but says it does not really help. We encouraged her efforts. Assessment & Plan (11/19/2021 7:15 PM CDT): She continues to smoke. She is wearing a nicotine patch to help her cut back, and did quit for a short while but relapsed. She enjoys sitting on her front porch with her neighbor and smoking a cigarette. We encouraged her to try quitting again. Assessment & Plan (08/05/2021 2:26 PM LAUNDRY PRICING CLERK): She is working hard on smoking cessation. She started with the 21 mg nicotine patch and is down to 14 mg. She has cut back quite a bit but has not completely quit. I encouraged her efforts. Assessment & Plan (05/09/2021 2:21 PM CDT): She is rationing her cigarettes, but has trouble quitting completely. She says the nicotine patches have helped, but she only wears them during the daytime because of nightmares if she wears them at night. I encouraged continued efforts at weight loss. Assessment & Plan (03/15/2021 9:27 AM CDT): Strongly encouraged smoking cessation, at very least for a few days to avoid worsening cough. Assessment & Plan (02/19/2021 8:10 AM CDT): She is still smoking. She has no plans to quit I nevertheless encouraged her to consider this. Assessment & Plan (08/06/2020 8:44 AM LAUNDRY PRICING CLERK): She continues to smoke cigarettes. I continue to recommend smoking cessation. She doubts she will ever quit. Assessment & Plan (04/05/2020 2:38 PM CDT): She continues to smoke but has cut back. I again encouraged her to quit completely. Assessment & Plan (03/26/2020 3:20 PM CDT): She continues to smoke and I encouraged cessation. She says she has cut down significantly. Assessment & Plan (01/19/2020 12:16 PM CDT): She continues to smoke cigarettes and we continue to recommend cessation, but she has no interest in quitting. Assessment & Plan (01/18/2020 1:55 PM CDT): She continues to smoke cigarettes. She has no intention of quitting. Assessment & Plan (08/17/2019 2:43 PM LAUNDRY PRICING CLERK): She quit smoking while she was in the hospital, but has resumed tobacco use, just not as much. I encouraged her to quit completely. Assessment & Plan (07/08/2019 10:58 AM LAUNDRY PRICING CLERK): She has gone 35 days without smoking a cigarette. This is good news and hopefully will continue. We will check her again in one month. Assessment & Plan (05/29/2019 5:39 AM CDT): Start on Nicoderm patch Patient is not interested in quitting smoking Assessment & Plan (07/03/2017 2:31 PM LAUNDRY PRICING CLERK): Tobacco cessation offered office today to which patient refused. We will continue to address every visit patient will follow up through with use of ProAir for mild intermittent asthma. And full PFT test was completed in 2015 which did not indicate any chronic lung disease. Assessment & Plan (03/27/2017 3:34 PM CDT): Of course, I recommended cessation. She is disinterested in this today. Assessment & Plan (02/23/2017 2:07 PM CDT): Advised to quit Assessment & Plan (01/30/2017 9:13 AM CDT): The patient was advised to quit smoking; the risks of continued tobacco use discussed. Resolved Problems Problem Noted Date Diagnosed Date Resolved Date Acute kidney injury 01/29/2025 03/28/20 25 Assessment & Plan (02/07/2025 6:44 AM CDT): -Acute, resolved -Patient had presented to the emergency department with acute complaints of dyspnea, fatigue, dry cough -Patient was noticed to have a creatinine of 2.57 which baseline is typically 1.5-1.7 -Patient was admitted for IV fluids -Today in office patient reports she is feeling much better from her recent hospitalization -Will continue to keep a close eye on renal function CKD (chronic kidney disease) 01/29/2025 03/28/2025 Troponin level elevated 01/29/202503/17 Hypokalemia 01/29/2025 03/28/2025 Hypermagnesemia 01/29/2025 03/28/2025 Physical deconditioning 01/29/202503/17 Increased anion gap metabolic acidosis 01/29/2025 03/28/2025 Hospital discharge follow-up 03/11/2024 04/28/2024 Overview (04/28/2024): See office note, LISA Sanchez. Assessment & Plan (03/11/2024 9:57 AM CDT): See hospital details above, testing and labs reviewed with patient in office today. Med reconciliation completed. Shortness of breaths and nausea have both resolved. Labs were stable upon discharge. No acute findings on exam, vital signs stable. Complaining of urinary dribbling as noted in HPI. Offered Urology and or physical therapy consult for this issue patient refuses at this time. Keep follows with cardiology and nephrology as scheduled. Assessment & Plan (03/21/2021 12:19 PM CDT): Patient presents post hospital discharge follow up for acute COPD exacerbation. She has completed steroids which have led to resolution of her cough. She still has some mild wheezing which has improved with albuterol nebs, which she will continue. Her medications were reviewed at this visit. See below following problems addressed. Other chest pain 07/14/2023 03/28/2025 Assessment & Plan (08/02/2023 7:32 PM LAUNDRY PRICING CLERK): She was in the ER two days ago with right sided chest pain that developed after she sneezed a couple of times. Testing in the ER was negative for a cardiac etiiology. Now it only hurts when she coughs. I reviewed the ER record. Labs were pretty normal. EKG was unchanged. There were trace elevations of troponin which we have seen in the past unrelated to cardiac issues. She has mild chronic kidney disease. She seems to be doing okay so we will continue current therapy and have her follow-up as scheduled in about one month. Myalgia 04/14/2023 11/15/2023 Overview (04/17/2023): Possible side-effect of Lipitor, trial of 1/2 dose recommended. Assessment & Plan (04/19/2023 3:00 PM CDT): She complains of soreness in her upper arms and shoulders. It started three days ago. She has normal pulses in her arms at the wrists. There is mild tenderness of the biceps and triceps, but no swelling. She has moderately stiff shoulders without any definite acute inflammation noted. I wonder if her symptoms are due to high-dose statin therapy. We will cut the dose in half over the next week to see if this helps. Other possibilities include polymyalgia rheumatica. Right hip pain 10/03/2022 11/15/2023 Assessment & Plan (10/20/2022 1:45 PM LAUNDRY PRICING CLERK): When she was in the office two weeks ago, she complained of significant right hip pain. X-ray showed mild DJD but no acute problems. Since then her right hip pain has improved significantly on Tylenol arthritis. Continue same. Assessment & Plan (10/06/2022 6:33 PM LAUNDRY PRICING CLERK): Described as dull aching that will sometimes radiate around and down R thigh. No injury. Tylenol helps some. PMH of stents to that leg. CTA in May showed moderate vascular changes, no intervention recommended at that time. No color or temperature changes, good pulses to distal foot/ankle. Will order XR R hip to r/o arthritis or other structural changes. Continue Tylenol. Heat/ice as tolerated. Encouraged aspercreme with lidocaine use also. Follow in 2 weeks. Other fatigue 10/03/2022 03/28/2025 Assessment & Plan (02/10/2024 2:37 PM CDT): Chronic, uncontrolled. This is her biggest problem and complaint. She has no energy to do anything. She blames it on amiodarone. We have been through this several times over the past several years. Thyroid hormone function level about a year ago was normal. We will check follow-up levels. I doubt the amiodarone is the cause of her fatigue, but we are checking with Cardiology via secure chat for possible alternatives. Assessment & Plan (10/20/2022 1:45 PM LAUNDRY PRICING CLERK): She saw LISA Sanchez about two weeks ago for fatigue and other complaints. She attributed the fatigue to amiodarone therapy which was started in May 2022 for paroxysmal atrial fibrillation. TSH was mildly elevated but T4 was normal. Heart rhythm today is regular. We will discuss with her front office specialist, possibly reduce the dose from 200 mg daily to 100 mg daily. Lab Results Component Value Date TSH 4.97 (H) 10/13/2022 Assessment & Plan (10/06/2022 6:40 PM LAUNDRY PRICING CLERK): Worse over the last 2 weeks. Not sleeping well at night and taking multiple naps during the day. No excessive caffeine use. Denies new or increased stressors. No acute findings on exam. Labs in May unremarkable, no anemia. TSH in August WNL. Encouraged to decrease caffeine use and use good sleep hygiene. Will repeat UA due to urinary issues, order XR of R hip due to pain. Rxd zyrtec due to rhinitis. Follow in 2 weeks for recheck. Microscopic hematuria 08/25/20222024 Overview (05/12/2023): Thoroughly evaluated, no serious pathology found. Assessment & Plan (01/22/2023 2:54 PM CDT): She had a thorough evaluation of this condition with no serious pathology found. Assessment & Plan (10/20/2022 4:59 PM LAUNDRY PRICING CLERK): She has a longstanding history of recurrent microscopic hematuria. Imaging of the kidneys recently was unremarkable. She has had two cystoscopies, one in Dr. Feng's office decades ago, in another one in [address] Dobson which was negative for local causes of hematuria. No additional workup is needed at this time. Urinary frequency 08/18/2022 03/28/2025 Overview (08/25/2022): No dysuria or fever. Assessment & Plan (10/06/2022 6:29 PM LAUNDRY PRICING CLERK): Urine dribbling and frequency but no urgency or dysuria or blood. Admits mild odor. Used to see Dr. dobson many years ago. UA done last month showed trace blood. Kidney function stable on recent labs. Will repeat UA with reflex micro to r/o UTI or further kidney disease. Increase water intake. Follow in 2 weeks. Assessment & Plan (08/25/2022 2:26 PM LAUNDRY PRICING CLERK): She noted increased urinary frequency and some dribbling incontinence about a week ago. There is no dysuria. We will check a urine for possible UTI. 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 Assessment & Plan (08/25/2022 2:28 PM LAUNDRY PRICING CLERK): She notes increased nasal congestion for the past month or so. She will try Flonase which she has at home. I also suggested sinus rinse, but she declines due to past intolerance of this modality. Nausea 03/24/2022 06/06/2022 Overview (06/06/2022): Saw LISA House in office, referred to ER for evaluation. Assessment & Plan (03/24/2022 1:40 PM CDT): Patient is reporting nausea and GI upset x 1 week. She reports eating a bland cracker or piece of bread helps. She denies any abdominal pain or tenderness. Bowel sounds are normal. No associated vomiting. Some harder stools reported. She denies any fever or chills. Etiology unclear some concern nausea may actually be ischemic in nature. 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 She also has CAD. Unclear which is culprit for her symptoms. Will transfer to ER for further evaluation. Acute midline low back pain with bilateral sciatica 02/03/2022 11/15/2023 Overview (02/06/2022): Pain radiates to lower abdomen and hips. Recent CT angiogram of aorta on 01/24/2022 reports mild degenerative disc space narrowing at L4/5 and L5/S1, not substantially changed. No suspicious osseous lesions or acute fractures. Assessment & Plan (04/19/2023 2:59 PM CDT): She had a flare of right lower back pain radiating into the right leg. It started about two weeks ago but is actually improving over the last three days. Exam is unremarkable. She is due back next week for her annual, so we will see how she is doing at that time. Assessment & Plan (02/06/2022 12:07 PM CDT): Patient calling she is having problems with her back for the last three days. She is thinking it is inflammation and she is wandering if we could call in steroids for her. She was on two months of steroids and it helped but now it is back again. Pt declines appt stating I can't come in, I can't stand up straight, the pain is constant. Pt req Rx for Medrol Dosepak. States It really helped me last time. Pt has f/u appt scheduled for Thursday02-10-22. Chest pain in adult 12/10/2021 06/06/20 Overview (06/06/2022): Episodic, referred to ER for further evaluation. Assessment & Plan (03/24/2022 1:40 PM CDT): Patient is reporting episodes of chest pain and nausea. She overall appears to feel unwell. We did do EKG today which showed extensive ST/T wave changes. Reviewed with Dr. Amaya and this does not appear changed from previous tracings. Etiology of pain is unclear. It is uncertain if this is a NSTEMI, pneumonia, CHF or r/t her mesenteric ischemia. Recommendation is for ER evaluation. Did recommend transfer to ER via EMS as recurrent chest pain. Patient however, left and chose to drive self against medical advice. Report called to ER. Assessment & Plan (12/26/2021 2:12 PM CDT): She was in the office about 2-3 weeks ago with chest pain. It was more of a transient sharp retrosternal discomfort, less of an anginal-type chest pain. Shortly after that visit, the pains went away. She did see Dr. Jensen about a week ago and he did not recommend any additional cardiac workup, but ABIs did suggest moderate to severe peripheral artery disease. A CT angiogram is scheduled for next week. For her cardiac condition, she can continue current therapy. Assessment & Plan (12/10/2021 1:44 PM CDT): Patient reports on Thursday had episodes of sharp mid chest pain that lasted seconds at a time and would come and go. She has not had any episodes since. She denies increased SOB, palpitations, diaphoresis or nausea. She had EKG completed in office today that was reviewed with Dr. Amaya. Her EKG is abnormal, but appears unchanged from previous. At this time will continue asa, statin, plavix and BB. We will call her front office specialist for sooner visit to determine if any further testing or medication changes are warranted. She will follow up her in 2-3 weeks. She is to call or go to ER with returning or worsening symptoms. Epistaxis 10/15/2021 11/15/2023 Assessment & Plan (11/04/2021 3:24 PM CDT): She has had frequent if not daily nose bleeds for the past three weeks. She thinks the right side is worse than the left. Exam shows some anterior nares erythema but no active bleeding. She is on aspirin. Dr. Jensen cut her Plavix back to every 48 hours because of her complaints of easy bruising. We suggested a referral to ENT for further evaluation, but the patient wants to wait and see how things go. She will call if she wants a referral. Skin tear of right hand without complication 2 06/06/2022 Overview (06/06/2022): Wound care in office, see note, LISA House. Assessment & Plan (09/30/2021 1:12 PM LAUNDRY PRICING CLERK): Patient presents with skin tear that occurred on Thursday on a metal basket she was moving. She was seen in urgent care. Skin was cleaned and bandage applied. Bandage was removed today and wound area appears clean no obvious signs of infection. Wound was cleansed with sterile saline and patted dry. Xeroform and non-stick bandage placed. Patient instructed to change dressing daily or more often if soiled. Encouraged use of non-stick bandages to prevent further tearing of the skin. She was instructed to call or return sooner with any redness, warmth, pain, fever or flu like symptoms. Toenail deformity 07/12/2021 11/15/2023 Overview (07/12/2021): See scanned office note, Dr. Garcia. Assessment & Plan (07/12/2021 3:54 PM LAUNDRY PRICING CLERK): Scanned office note, Dr. Garcia. Neck pain 06/28/2021 06/06/2022 Overview (06/06/2022): Saw LISA Mayers, improved with Medrol Dosepak. Assessment & Plan (08/17/2021 7:18 PM LAUNDRY PRICING CLERK): She saw LISA Mayers about a month ago for pain in her neck and left shoulder. She was given a Medrol Dosepak with improvement. Subsequently she also saw Dr. Freeman who put her on a longer course of steroids. Her neck pain is much better. She has been on the steroids for about two weeks now so I recommended that she stop them to see how she does without them. This will also allow her to get the COVID booster which she wants to get. She should stay off the steroids for two weeks before getting the booster, and refrain from resuming them for another two weeks after getting the booster. Assessment & Plan (06/28/2021 1:29 PM LAUNDRY PRICING CLERK): Left sided neck pain along with left shoulder pain and upper arm pain for about 1 month now. She reports that the day after her flu shot she woke up with pain and it has been constant since. We will start with x-rays today, which patient is in agreement with. She declines physical therapy at this time. She declines any pain medication at this time. She reports that she is taking tylenol and this seems to help some. I did offer a medrol drew to see if this will help with the inflammation, and she does want to try this. We discussed that this could be a pinched nerve, with the positive can test it could def be a tear in the shoulder. We will call her with results, but discussed that an MRI of the shoulder and neck would be another option for our next steps. Left shoulder pain 06/28/2021 4 Left upper arm pain 06/28/2021 11/15/19 24 Narrowing of both carotid arteries 01/15/2021 03/28/2025 Cough 11/15/2020 06/06/2022 Overview (06/06/2022): Seen in ER, admitted to hospital, had throat irritation from smoking and PND, improved with Solumedrol, azithromycin and DuoNebs. Assessment & Plan (03/15/2021 9:28 AM CDT): Appears to be primarily due to throat irritation from smoking, elevated environmental heat and humidity, and possible postnasal drip. No suspicion for pneumonia or COPD exacerbation with no leukocytosis, fever, wheezing, shortness of breath, sputum production, or infiltrates/consolidations on chest x-ray (imaging personally reviewed). Symptoms nearly resolved overnight with Solu-Medrol, azithromycin, and DuoNebs. Will wean steroids to prednisone and continue for 4 days at 40 mg daily. Start Flonase for possible postnasal drip. Can discharge home with PCP follow-up in 1-2 weeks. Assessment & Plan (02/19/2021 8:13 AM CDT): She has had a cough lately and would like to check a CXR. No fever. We will be in touch with her about the results. Gastroenteritis 03/19/2020 07/25/2020 Overview (07/25/2020): See hospital and office notes, resolved. Assessment & Plan (04/01/2020 4:46 PM CDT): She had acute onset of nausea, vomiting and diarrhea. The symptoms were felt to be secondary to a gastroenteritis. She was in the hospital for a few days getting IV fluids and electrolytes. Her symptoms might have been a side effect of antibiotics given for a bad tooth. Currently the tooth is not bothering her. All of her GI symptoms have resolved. She is very hungry and eats several meals a day. She feels weak and shaky. We lowered her diuretic dose and ordered some follow-up labs. She will come back in 10 days as scheduled, or sooner as needed for re-evaluation. Assessment & Plan (03/19/2020 5:51 PM CDT): Most likely viral. Cont gentle IVF given h/o CHF and monitor closely ROSALINA (acute kidney injury) 03/19/2020 Overview (07/25/2020): See hospital notes, due to AGE/dental infection/use of antibiotics, resolved. Assessment & Plan (03/26/2020 3:16 PM CDT): She was in the hospital recently with generalized weakness from nausea, vomiting and diarrhea. It could have been due to a side effect of antibiotics given for a bad tooth. Potassium was low. She received IV fluids and electrolytes. She continues to feel weak even though the diarrhea and vomiting have resolved. She denies fever or abdominal pain. We will check a follow-up BMP and magnesium level. Return in 10 days as currently scheduled, or sooner if needed. Assessment & Plan (03/19/2020 5:52 PM CDT): Due to GI losses and improving with IV fluids. Will cont gentle IVF and restart CHF meds and monitor Dental infection 03/12/2020 02/05/2021 Overview (03/13/2020): Intolerant of doxycycline prescribed by her dentist. Blood in stool 03/08/2020 07/25/2020 Overview (07/25/2020): See office note from LEATHA Reyes. Stool guaiac negative. Hgb normal. Assessment & Plan (03/08/2020 10:47 AM CDT): Patient presents today with reports of blood in stools and toilet that occurred yesterday. Today she has had no further issues. She does not report any pain with defection. No associated dizziness or feeling light-headed. On exam today she guaic is negative. No pain on exam. There is however concern for hemorrhoid or diverticula as source of bleeding. Given resolution and no other symptoms, will check CBC to r/o significant blood loss. She was instructed should she have recurrent bleeding she should call and will need referral at that point to GI for colonoscopy. Understanding verbalized. Right groin pain 01/17/2020 02/05/2021 Overview (02/05/2021): Resolved, see office notes, probably a pinched nerve. Assessment & Plan (02/15/2020 1:30 PM CDT): This has completely resolved along with her back pain. It was probably a pinched nerve. We will obtain additional workup as needed. Assessment & Plan (02/01/2020 11:25 AM CDT): The current low back pain radiates into the right hip and right groin area, and extends as far as the knee. It is not a sharp pain, but more of a dull ache. It is constant and has been moderate to severe, although today it is suddenly somewhat better. There is no palpable local abnormality in the right groin. Urinary and bowel habits are unchanged. This is most likely a nerve root irritation, but local arthritis is a possibility so we are getting plain films of the hips (both hips are moderately painful with passive range of motion). Follow-up in two weeks, or sooner if needed. Acute right-sided low back p ain with right-sided sciatica 01/17/2020 05/04/2021 Overview (05/04/2021): Recurrence, see office note. Assessment & Plan (02/06/2021 2:11 PM CDT): She has had a recurrence of low back pain with right sciatica. 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 She got better with conservative management including Tylenol. She had a recurrence about two weeks ago. The pain comes and goes. It radiates into her right groin and right thigh area. Currently she has no sciatic pain. She does not want any additional imaging such as MRI or CT. She does not want a referral to physical therapy or pain management. She will continue taking Tylenol as needed and follow-up early if not experiencing sustained improvement. Assessment & Plan (02/26/2020 3:08 PM CDT): She was here about a week or two ago with acute low back pain that seemed to radiate into her right groin. After a few days, it subsided and is now resolved. She says she has had this type of back pain for years and this happens every once in a while. She did not require anything stronger than Tylenol, she did not engage in physical therapy or even back exercises at home. If the pain recurs frequently, we will proceed with additional evaluation. Assessment & Plan (02/12/2020 10:09 AM CDT): She has had intermittent low back pain for a couple of years, but it usually lasts for a couple of days and goes away. It looks like she has had left sciatic radiation in the past. She has now had a flare of low back pain for the past two weeks with sciatic radiation to the right side. She denies numbness. Walking has been difficult. Today, the pain suddenly seems a little bit better. She denies having a fever. She denies urinary retention or incontinence or change in bowel habits. She does note radiating pain into the right groin area. Exam shows normal strength and knee jerk reflexes (although absent at both ankles). Gait is mildly antalgic. She is able to stand on her toes and heels. Balance seems reasonably good. It sounds like she has an irritated nerve root. She asked about a possible aneurysm in the femoral artery were they performed a heart catheterization in the not too distant past. However, there is no local swelling or tenderness in the right groin or inguinal area. Range of motion in the hips does generate some pain, so some of her discomfort could be from DJD. We will check some plain films of the LS spine and hips. She has not taken anything for this pain, and I suggested trying Tylenol, not to exceed 3 g a day in divided doses. She does not want anything stronger than Tylenol. I recommended some physical therapy, but she wants to defer for now. However, I think it is a good idea to at least put in a physical therapy consult so that treatment is not delayed if she changes her mind. We will see her back in two weeks, or sooner if needed. Dependence on nicotine from cigarettes 07/02/2019 07/08/2019 Overview (07/08/2019): Quit smoking May 2019? Assessment & Plan (07/02/2019 10:50 PM LAUNDRY PRICING CLERK): Patient stopped smoking 32 days ago. She currently is on a nicotine patch. Will continue with Nicoderm 14 mg. SOB (shortness of breath) 05/29/2019 Overview (07/08/2019): Due to COPD and diastolic heart failure, see hospital records. Assessment & Plan (12/25/2022 4:58 PM CDT): She is debilitated by feeling short of breath and fatigued. Symptoms are likely multifactorial including those noted in today's visit. Added together, they probably explain the patient's symptoms. However, we are exploring the issue of possible medication side effects from amiodarone. A recent chest x-ray was negative for any infiltrates. Aggressive walking around the office today produced exertional dyspnea, but oxygen saturation remained in a satisfactory range. Lung exam is essentially negative for wheezing, indicating a lack of significant bronchospasm. She is anticoagulated and should be at low risk for pulmonary embolism. BNP recently was at her stable baseline and there is no swelling in her legs. Assessment & Plan (12/18/2022 9:08 PM CDT): Persistent SOBOE. EKG done in office today shows sinus benito at 49, old ST changes in lateral leads. No acute findings on exam. No edema. Will decrease Metoprolol to 25mg daily due to low HR. Continue all other meds as rxd including inhalers. Order CXR to r/o PNA or worsening COPD. Check CMP, CBC, BnP. Keep follow up next month. Assessment & Plan (12/18/2022 8:46 PM CDT): Likely due to COPD, see plan below. Assessment & Plan (03/21/2021 12:23 PM CDT): Patient has persistent shortness of breath that is most likely multifactorial in the setting of COPD and CHF. She has been treated for acute exacerbation of COPD with nebs and steroids. She however, has some persistent shortness of breath with activity, this may however, be her baseline. She had EKG in the hospital that appeared unchanged from previous. Have recommended however, given her SOB with activity, that we repeat echo earlier than scheduled in July to r/o any LV dysfunction, wall motion abnormality, or valvular abnormality. She will also follow up with cardiology. She will keep next scheduled visit with Dr. Amaya or return sooner if needed. Assessment & Plan (05/29/2019 5:38 AM CDT): Likely multifactorial due to COPD exacerbation as well as diastolic Congestive heart failure . Management as above Chronic diastolic congestive heart failure 05/29/2019 07/25/2020 Overview (07/25/2020): See hospital records. Duplicate entry. Assessment & Plan (01/11/2020 2:54 PM CDT): She has a history of diastolic heart failure and subaortic hypertrophic cardiomyopathy. She was in the hospital about six months ago with an exacerbation. Medications were adjusted. Since then, she has done reasonably well, but does get short of breath with exertion. She occasionally has a mild vague discomfort in her chest, nothing like pain or pressure. She sees Dr. Jensen and Dr. Houser, and will be seeing an hospice care sales consultant Dr. More at [facility] in about 10 days. Continue current therapy. Follow-up here in 3-6 months. Assessment & Plan (07/08/2019 10:55 AM LAUNDRY PRICING CLERK): She was in the hospital recently with a worsening of shortness of breath. Some of this may be due to chronic diastolic heart failure. She is on a diuretic. There is no edema in her ankles. Lungs are fairly clear and oxygen saturation is normal. Continue current therapy. Assessment & Plan (07/02/2019 11:13 PM LAUNDRY PRICING CLERK): Patient has severe HOCM. Need to be cautious with diuresis. Patient feels much better at this time. Will give 1 more dose of Lasix in the morning. Strict I&Os. Continue to monitor. Continue Bystolic and Aldactone. Patient has an appointment with Dr. Jensen in July. Patient is finding it difficult to avoid sodium as she uses canned foods. She does not add salt to her cooking. She also notes she has been snacking and eating more since she has quit smoking. Assessment & Plan (05/29/2019 5:36 AM CDT): Most likely diastolic Congestive heart failure exacerbation. Echocardiogram consistent with concentric hypertrophy of left ventricle with preserved ejection fraction. BNP is elevated. Will give 1 dose of IV Lasix Monitor I&Os Will monitor closely BMI 20.0-20.9, adult 07/03/2017 019 Mild intermittent asthma without complication 07/03/20 17 07/08/2019 Overview (07/08/2019): Worsening, mostly due to tobacco use. Assessment & Plan (07/03/2017 2:31 PM LAUNDRY PRICING CLERK): Stable. Tobacco cessation offered office today to which patient refused. We will continue to address every visit patient will follow up through with use of ProAir for mild intermittent asthma. And full PFT test was completed in 2015 which did not indicate any chronic lung disease. Body mass index (BMI) 20.0-20.9, adult 05/08/2017 07/08/2019 Assessment & Plan (05/08/2017 1:44 PM CDT): Recommended patient to continue to increase heart healthy diet with adequate fruits, vegetables, and plenty of water along with mild-moderate daily exercise as tolerated. Acute left-sided low back pa in with left-sided sciatica 05/08/2017 07/08/2019 Overview (07/08/2019): See office records. Assessment & Plan (05/08/2017 1:45 PM CDT): Recommended Medrol Dosepak tapering course over 6 days along with application of heat, stretching exercises, and will follow up in office regarding this condition in 2 weeks. Patient was advised to avoid [id number] NSAIDs due to Miles's esophagitis. Also, an x-ray was completed office today of LS spine will follow patient regarding results of testing any for additional management. Certainly she was encouraged to follow up in our office before the 2 week follow-up there is any concern regarding improvement symptoms or worsening symptoms. Low back pain without sciatica 03/27/2017 07/19/2019 Overview (07/19/2019): Improved/resolved per notes from prior care. Assessment & Plan (03/27/2017 3:36 PM CDT): Currently asymptomatic. Declines further testing or treatment. 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 Angiographically severe single-vessel coronary artery disease involving the nondominant right coronary artery. 2. Hyperdynamic left ventricular systolic function, estimated ejection fraction over 80% with near cavitary obliteration. 3. Severe hypertrophic cardiomyopathy with 110-120 mm gradient on pullback without provocation. 4. Normal left ventricular end diastolic pressure. 5. Patent stent in the celiac artery with stent fracture and high-grade focal in-stent restenosis. 6. Patent stent in the inferior mesenteric artery with mild in-stent restenosis. 7. Successful vascular access closure. Assessment & Plan (07/03/2017 2:32 PM LAUNDRY PRICING CLERK): Last 2D echocardiogram was completed in October of 2015 which indicated just fraction 75%. Continue to see for management of heart failure along with continue furosemide, metoprolol, Lipitor, and aspirin therapy daily. Pain in wrist 09/22/2016 07/08/2019 Overview (07/08/2019): Left wrist pain, details lacking. Miles's esophagus 12/29/2012 12/14/19 Overview (12/14/2019): Possible short-segment of Miles's seen on endoscopy, Dr. Cordoba, [facility], but biopsies were negative for Miles's metaplasia. Assessment & Plan (05/29/2019 5:38 AM CDT): Start on famotidine Assessment & Plan (02/23/2017 2:06 PM CDT): EGDs per Dr Nesbitt Osteoporosis 07/05/2012 03/28/2025 Overview (11/09/2021): Took Fosamax years ago, does not remember for how long. Follow up [facility] 11[facility]07[facility]2021[facility] [facility] with 07/21/2019 DEXA: AP LUMBAR SPINE L1-L4: T-score is -1.2, There has been a 2.7% increase in BMD which is statistically significant. LEFT HIP:T-score is -2.2, There has been a 5.7% increase in BMD which is statistically significant. 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 She is on calcium and vitamin-D as a supplement. She used to take Fosamax many years ago, but does not remember how long she took it. We will consider alternative therapy, but for now continue the calcium and vitamin-D. Encounters Date Type Department Care Team Description 06/06/2025 Results Follow-Up [facility] at [address] [place] [phone] Obi Lawler MA Basic metabolic panel, Pro B-type natriuretic peptide, eGFR 06/05/2025 3:15 PM CDT Lab [facility] 4 [place], [place] Congestive heart failure with left ventricular diastolic dysfunction, chronic (HCC) 06/05/2025 2:45 PM CDT Office Visit [facility] at [address] [place] [phone] Sarthak Jensen MD Hypertrophic cardiomyopathy (HCC) (Primary Dx); PAF (paroxysmal atrial fibrillation); Hypokalemia; Congestive heart failure with left ventricular diastolic dysfunction, chronic (HCC) 05/12/2025 Telephone [facility] at [address] [phone] Gloria Ely Chart Review (Med adherence) 04/25/2025 Orders Only [facility] at [address] [phone] Leti Manuel NP Age-related osteoporosis without current pathological fracture (Primary Dx) 04/20/2025 Telephone [facility] at [address] [phone] Leti Manuel NP 04/11/2025 2:11 PM CDT - 04/11/2025 11:59 PM CDT Hospital Encounter [facility] [address] [place] [address] Age related osteoporosis, unspecified pathological fracture presence Discharge Disposition: Discharge to home or self care 04/11/2025 Results Follow-Up [facility] at [address] [phone] Leti Manuel, LEATHA Dexa Axial Skeleton Bone Density 1 or 2 Site 03/31/2025 Telephone [facility] at [address] [place] [phone] Leti Manuel NP Medication Request 03/30/2025 Results Follow-Up [facility] at [address] [place] [phone] Leti Manuel NP Magnesium, Vitamin B12, Vitamin D 25 hydroxy, Additional followed-up results: 7 03/29/2025 12:35 PM CDT Lab [address] Preventative health care; Low magnesium level; Low serum vitamin B12; Age-related osteoporosis without current pathological fracture; Vitamin D deficiency; Encounter for screening examination for impaired glucose regulation and diabetes mellitus; Mixed hyperlipidemia; Screening for thyroid disorder 03/28/2025 2:30 PM CDT Office Visit [facility] at [address] [phone] Leti Manuel NP Preventative health care (Primary Dx); Essential hypertension; Mixed hyperlipidemia; PAF (paroxysmal atrial fibrillation); Congestive heart failure with left ventricular diastolic dysfunction, chronic ([facility]); Stage 3b chronic kidney disease (CKD) ([facility]); Anxiety; Chronic obstructive pulmonary disease, unspecified COPD type (HCC); Low serum vitamin B12; Low magnesium level; Tobacco use disorder; Age-related osteoporosis without current pathological fracture; Body mass index (BMI) of 22.0 to 22.9 in adult; Screening for thyroid disorder; Encounter for screening examination for impaired glucose regulation and diabetes mellitus; Vitamin D deficiency from Last 3 Months Immunizations Immunization Administration Dates Next Due Influenza, Quad, Adjuvantate d, Intramuscular 04/25/2023,06/26/2022,04/20/2020 Influenza, Quadrivalent, Hig h Dose, Preservative Free, Intrr 06/04/2021 Influenza, Quadrivalent, Spl it, Intramuscular 05/17/2015 Influenza, Quadrivalent, Spl it, Preservative Free, Intramuscular 05/06/2016 Influenza, Split 07/28/2013,09/20/2012 Influenza, Trivalent, High D ose, Split, Preservative Free, Intramuscular 05/05/2024,04/21/2019,05/25/2018,05/25 Influenza, Trivalent, IM (MDV) 5,05/09/2015,05/17/2014,07/28 Moderna SARS-CoV-2 Monovalen t Vaccination (12+ YRS) 12/04/2020,11/07/2020 Pneumococcal Conjugate PCV 13 04/21/2019, 016 Pneumococcal Polysaccharide PPV23 07/05/2012 Tdap 09/28/2021,07/05/2012 ZOSTER Recombinant 10/24/2020,08/23/2020 Surgical History Surgery Date Site/Laterality Comments CHOLECYSTECTOMY Details lacking. TUBAL LIGATION Bilateral Details lacking. SECTION Details lacking. TONSILLECTOMY/ADENOIDECTOMY 08/17/1955 - 08/16/1956 OOPHERECTOMY 08/17/1988 - 08/16/1989 Right Details lacking. CELIAC ARTERY STENT 08/17/2009 - 08/16/2010 Multipl stents, [id number]. OVARIAN CYST REMOVAL 08/17/1988 - 08/16/1989 Right Details lacking. DEXA SCAN 02/25/2017 Osteoporosis, hip. MAMMOGRAPHY 11/02/2018 Bilateral Negative, [facility]. DEXA SCAN 07/21/2019 Osteopenia, spine; osteoporosis, hip. COLONOSCOPY 05/29/2016 Normal except hemorrhoids, Dr. Garay, [facility]. MAMMOGRAPHY 04/11/2020 Bilateral Negative, [facility]. CARDIAC CATHETERIZATION 03/04/2018 Left Angiographically severe single-vessel coronary artery, patent celiac and KIERAN MAMMOGRAPHY 05/06/2021 Bilateral Negative, [facility]. MAMMOGRAPHY 06/11/2022 Bilateral Negative, [facility]. ESOPHAGOGASTRODUODENOSCOPY 05/29/2016 N/A Normal, Dr. Garay, [facility]. Report is in Clinical Desktop. CYSTOSCOPY 01/04/2019 N/A Normal, Dr. Dobson, office procedure. MAMMOGRAPHY 07/16/2023 Bilateral Negative, [facility]. CATARACT EXTRACTION 08/17/2023 - 09/16/2023 Dr. Uribe. CATARACT EXTRACTION 09/17/2023 - 10/15/[address] Uribe, [facility]. MAMMOGRAPHY 09/02/2024 Bilateral [facility], negative. Medical History Medical History Date Comments Gastroesophageal reflux disease GERD Hypertension Hypertension Pain in wrist 09/22/2016 Left wrist pain, details lacking. Mild intermittent asthma wit hout complication 07/03/2017 Worsening, mostly due to tob acco use. Dependence on nicotine from cigarettes 9 Quit smoking May 2019? Body mass index (BMI) 20.0-20.9, adult 7 Acute diastolic congestive h eart failure (HCC) 05/29/2019 See hospital records. Acute left-sided low back pa in with left-sided sciatica 05/08/2017 See office records. Celiac artery stenosis 2010 Stent catherine elzbieta. 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 Chicken pox 1949 Measles Date and details lacking. Kidney stone Dates and detail s lacking. Medication management 02/23/2017 Low back pain without sciatica 03/27/2017 I mproved/resolved per notes from prior care. 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 Cordoba, [facility], but biopsies were negative for Miles's metaplasia. Mumps Hypomagnesemia 07/02/2019 See hospital rec ords, corrected with supplement. 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 Chronic diastolic congestive heart failure (HCC) 05/29/2019 See hospital records. Duplic ate entry. Gastroenteritis 03/19/2020 See hospital and office notes, resolved. Blood in stool 03/08/2020 See office note from LEATHA Reyes. Stool guaiac negative. Hgb normal. Right groin pain 01/17/2020 Resolved, see o ffice notes, probably a pinched nerve. Dental infection 03/12/2020 Intolerant of d oxycycline prescribed by her dentist. Acute right-sided low back p ain with right-sided sciatica 01/17/2020 Recurrence, see office note. Low magnesium level 07/02/2019 See hospital records, corrected with supplement. Recurrent March 2020, oral supplement added. Neck pain 06/28/2021 Saw KRISTIN Mayers, improved with Medrol Dosepak. Nausea 03/24/2022 Saw KRISTIN House in office, referred to ER for evaluation. Chest pain in adult 12/10/2021 Episodic, re ferred to ER for further evaluation. Hospital discharge follow-up 03/11/2024 See office note, LISA Sanchez. Family History Medical History Relation Name Comments Other Father liver; Cause of : liver/liver; Cause of : liver Ovarian cancer Father's Sister Cancer -ov shiraz; Diabetes type II Maternal Grandmother Tatiana vásquez -Type 2; Other Mother blood clot/back surgery; Cause of : blood clot/back surgery/blood clot/back surgery; Cause of : blood clot/back surgery Lung cancer Mother's Sister Cancer -lung ; Migraines Sister Migraines; Breast cancer Neg Hx Thyroid cancer Neg Hx Relation Name Status Comments Father (Age 79) Father's Sister Maternal Grandmother Mother (Age 53) Mother's Sister Sister Social History Tobacco Use Types Packs/Day Years Used Date Smoking Tobacco: Every Day Cigarettes 0.5 70.6 Started: 1955; Last attempted to quit: 02/14/2023 Smokeless Tobacco: Never Tobacco Cessation:Ready to Q uit: Not Asked; Counseling Given: Not Answered Alcohol Use Standard Drinks/Week Comments Never 0 (1 standard drink = 0.6 oz pur e alcohol) [facility] Utilities Answer Date Recorded In the past 12 months has e [email or web address], gas, oil, or water [employer] threatened to shut off services in your [...] often do you attend chur ch or congregational services? Never 02/01/2025 Do you belong to any clubs o r organizations such as catholic groups, unions, fraternal or athletic groups, or [...] place to sleep or slept in a group home (including now)? No 07/17/2023 Housing Stability Vital Sign Answer Santi e Recorded Unable to Pay for Housing in the Last Year Not o n file 02/01/2025 In the past 12 months, how m any times have you moved where you were living? 0 02/01/2025 [facility] you [facility] or living in a group home (including now)? 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 Gender Identity Not on file Sexual Orientation Not on file Obstetrics History Para Term AB IAB SAB Ectopic Multiple Livin g Live Births 2 2 2 Date Outcome GA Total Labor Labor/2nd/3rd Weight Sex Type Anes PTL Aisha A1 A5 Name Clin Term Term Last Filed Vital Signs Vital Sign Reading Time Taken Comments Blood Pressure 124/70 06/05/2025 2:49 PM CDT Pulse 57 06/05/2025 2:49 PM CDT Temperature 36.3 C (97.3 F) 01/31/2025 8:00 AM CDT Respiratory Rate 18 06/05/2025 2:49 PM CDT Oxygen Saturation 95% 03/28/2025 2:28 PM CDT Inhaled Oxygen Concentration - - Weight 57.6 kg (127 lb) 06/05/2025 2:49 PM CDT Height 157.5 cm (5' 2) 06/05/2025 2:49 PM CDT Body Mass Index 23.23 06/05/2025 2:49 PM CDT Plan of Treatment Health Maintenance Due Date Last Done Comments Hepatitis B Screening 1958 Covid-19 Vaccine ( - 2024-2 6 season) 2025 02/24/2022, 08/22/2021, 12/04/2020, Additional history exists Influenza Vaccine (#1) 2025 , 04/25/2023, 06/26/2022, Additional history exists Breast Cancer Screening-Mammogram 09/02/2025 09/02/2024, 07/16/2023, 06/11/2022, Additional history exists Depression Screening 02/06/2026 02/06/2025, 01/25/2025, 12/27/2024, Additional history exists Fall Risk Assessment 02/06/2026 02/06/2025, 01/31/2025, 01/25/2025, Additional history exists Well Visit 65+ 03/28/2026 03/28/2025, 03/17, 10/22/2023, Additional history exists Osteoporosis Screening-Bone Density Scan 04/11/2027 04/11/2025, 11/07/2021, 07/21/2019, Additional history exists DTaP/Tdap/Td Vaccine (3 - Td or Tdap) 09/28/2031 09/28/2021, 07/05/2012 Colon Cancer Screening-CT Colonography Discontinued 05/29/2016, 05/29/2016 Colon Cancer Screening-Colonoscopy Discontinued 05/29/2016, 05/29/2016 Colon Cancer Screening-DNA Stool Discontinued 05/29/20 16, 05/29/2016 Colon Cancer Screening-FIT Discontinued 05/29/2016, Colon Cancer Screening-Sigmoidoscopy Discontinued 05/29/2016, 05/29/2016 Pneumococcal vaccine 65+ Completed 019, 05/06/2016, 07/05/2012 Zoster Vaccine Completed 10/24/2020, 08/23/2020 Procedures Procedure Name Priority Date/Time Associated Diagnosis Comments EGFR Routine 06/05/2025 3:17 PM CDT Congestive heart failure with left ventricular diastolic dysfunction, chronic (HCC) PRO B-TYPE NATRIURETIC PEPTIDE Routine 06/05/2025 3:17 PM CDT Congestive heart failure with left ventricular diastolic dysfunction, chronic (HCC) BASIC METABOLIC PANEL Routine 06/05/2025 3:17 PM CDT Congestive heart failure with left ventricular diastolic dysfunction, chronic (HCC) DEXA AXIAL SKELETON BONE DENSITY 1 OR MORE SITES Schedule Routine, Read Routine (OP Routine) 04/11/2025 2:21 PM CDT Age related osteoporosis, unspecified pathological fracture presence EGFR Routine 03/29/2025 12:38 PM CDT Preventative health care DIFFERENTIAL AUTO Routine 03/29/2025 12:38 PM CDT Preventative health care CBC WITH AUTO DIFFERENTIAL Routine 03/29/2025 12:38 PM CDT Preventative health care COMPREHENSIVE METABOLIC PANEL Routine 03/29/2025 12:38 PM CDT Preventative health care THYROID FUNCTION CASCADE Routine 03/29/2025 12:38 PM CDT Preventative health care Screening for thyroid disorder LIPID PANEL Routine 03/29/2025 12:38 PM CDT Preventative health care Mixed hyperlipidemia HEMOGLOBIN A1C Routine 03/29/2025 12:38 PM CDT Encounter for screening examination for impaired glucose regulation and diabetes mellitus VITAMIN D 25 HYDROXY Routine 03/29/2025 12:38 PM CDT Preventative health care Age-related osteoporosis without current pathological fracture Vitamin D deficiency VITAMIN B12 Routine 03/29/2025 12:38 PM CDT Preventative health care Low serum vitamin B12 MAGNESIUM Routine 03/29/2025 12:38 PM CDT Preventative health care Low magnesium level SCREENING MAMMOGRAM BILATERAL W RITESH Schedule Routine, Read Routine (OP Routine) 09/02/2024 1:54 PM 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 73 m2 Comment: Interpretive Data Reference Interval Normal >/= 90 mL/min/1.73m2 Mildly decreased* 60 - 89 mL/min/1.73m2 Mildly to moderately decreased 45 - 59 mL/min/1.73m2 Moderately to severely decreased 30 - 44 mL/min/1.73m2 Severely decreased 15 - 29 mL/min/1.73m2 Kidney Failure < 15 mL/min/1.73m2 *Relative to young adult level Estimated glomerular filtration rate is determined by the 2020 CKD-EPI equation recommended by the National Kidney Foundation (A Unifying Approach to GFR Estimation: Recommendations of the NKF-ASK Task Force on Reassessing the Inclusion of Race in Diagnosing Kidney Disease, JASN 2020). The CKD-EPI equation should not be used for patients with unstable renal function and has not been validated in children and those over 70. Current interpretive data was last reviewed 2021. Blood 06/05/2025 3:17 PM CDT 06/05/2025 5:17 PM CDT Sarthak Jensen MD LAB BLOOD ORDERABLES Final Resu lt [facility] ([place]) 1 [facility] [place] [address] * (ABNORMAL) Pro B-type natriuretic peptide (06/05/2025 3:17 PM CDT) NT-proBNP 2,531(H) <=450 pg/mL Comment: Interpretive Comments: A. Dyspnea in Acute Care Setting All Ages: < 300 pg/ml, acute heart failure unlikely. < 50 yrs: 300 - 450 pg/ml, further investigation warranted. > 450 pg/ml, acute heart failure likely. 50 - 74 yrs: 300 - 900 pg/ml, further investigation warranted. > 900 pg/ml, acute heart failure likely . > or = 75 yrs: 450 - 1800 pg/ml, further investigation warranted. > 1800 pg/ml, acute heart failure likely. B. Non-acute Setting < 75 yrs < 125 pg/ml, rules out heart failure. > or = 125 pg/ml, further investigation warranted. > or = 75 yrs < 450 pg/ml, rules out heart failure. > or = 450 pg/ml, further investigation warranted. - Knowledge of each individual patient's NT-proBNP range may be more useful than using similar cut-points for every patient. Please note that marked elevations in NT-proBNP levels may be observed in state other than Left Ventricular Congestive Failure, including: acute coronary syndromes, right heart strain/failure (including pulmonary embolism and cor pulmonale), critical illness, renal failure, as well as advanced age. - References: 1. Onel JL et.al. Eur Heart J. 2006:27:330-337. 2. Willow CARBALLO, Jaya BRANHAM. J. AM Ammon Cardiol: Cardiovasc Imag. 2009;2: 216- 225. Interpretive Data Last Revised Date: 2018. Blood 06/05/2025 3:17 PM CDT 06/05/2025 5:17 PM CDT us Sarthak Jensen MD LAB BLOOD ORDERABLES Final Resu lt [facility] ([place]) 1 [facility] [place] [address] * (ABNORMAL) Basic metabolic panel (06/05/2025 3:17 PM CDT) Sodium 141 135 - 145 mmol/L Potassium, pl 3.8 3.3 - 4.9 mmol/L [facility] ([place]) Chloride 102 97 - 110 mmol/L [facility] ([place]) CO2 25 22 - 32 mmol/L [facility] ([place]) Anion gap 14 2 - 15 mmol/L [facility] ([place]) BUN 41(H) 6 - 25 mg/dL [facility] ([place]) Creatinine 1.32(H) 0.60 - 1.10 mg/dL [facility] ([place]) Glucose 96 70 - 199 mg/dL [facility] ([place]) Comment: Interpretive Data Fasting glucose >/= 126 mg/dl is diagnostic for diabetes. Fasting is defined as no caloric intake for at least 8 hours. Fasting glucose between 100 mg/dl to 125 mg/dl is diagnostic of prediabetes. In a patient with classic symptoms of hyperglycemia or hyperglycemic crisis, a random glucose >/= 200 mg/dl is diagnostic for diabetes. In the absence of unequivocal hyperglycemia, results should be confirmed by repeat testing. The classification and Diagnosis of Diabetes Diabetes Care 2021; 46: S19-S40. Current interpretive data was last revised 2022. Calcium 10.1 8.5 - 10.3 mg/dL [facility] ([place]) Blood 06/05/2025 3:17 PM CDT 06/05/2025 5:17 PM CDT Sarthak Jensen MD LAB BLOOD ORDERABLES Final Resu lt [facility] ([place]) 1 [facility] [place] [address] * Dexa Axial Skeleton Bone Density 1 or 2 Site (04/11/2025 2:21 PM CDT) Anatomical Region Laterality Modality Body N/A Other 04/11/2025 8:16 PM CDT Addenda Addendum by Nimesh Manuel MD on 06/05/2025 10:37 PM CDT ADDENDUM: This addendum report supersedes the original report dated 04/11/2025. Dissimilar scan types or analysis methods precludes assessment for calculating a significant change. END OF ADDENDUM REPORT THIS IS AN ELECTRONICALLY VERIFIED FINAL REPORT 06/05/2025 10:37 PM Addendum Electronically signed by Nimesh Manuel M.D. MF: LENCHO Report ID: [id number] Reading Location: [id number] [facility] 04/11/2025 8:18 PM CDT EXAM DESCRIPTION: DEXA AXIAL SKELETON BONE DENSITY 1 OR MORE SITES REASON FOR STUDY: 85 y/o year old F with given history of: osteoporosis Screening Checker/Stocker/Model: [employer] (S/N [id number]) Facility LSC value of 0.022 for the AP spine, 0.027 for the femur, and 0.023 for the forearm. CLINICAL INFORMATION: Current height: 63 inches Maximum height: 64 inches Weight: 128 pounds Risk factors: Postmenopausal, smoking history, asthma or emphysema COMPARISON: 11/07/2021 FINDINGS: AP LUMBAR SPINE L1-L4: Total BMD is 0.941 g/cm2 T-score is -1.0 LEFT HIP: Total BMD is 0.647 g/cm2 T-score is -2.4 Femoral neck BMD is 0.526 g/cm2 T-score is -2.9 FRAX: FRAX not reported due to T-scores of hip, femoral neck and/or spine being at or below -2.5 (Osteoporosis). IMPRESSION: 1. Osteoporosis. REFERENCE: Bone mineral density: T-Score: Normal (T-score above or = -1.0) Low bone mass (T-score between -1.0 and -2.5) replaces the previously used term osteopenia Osteoporosis (T-score = or below -2.5) Z-Score: Within the expected range for age (Z-score above -2.0) Below the expected range for age (Z-score is -2.0 or below) Please see below follow up recommendations. Medical evaluation for secondary causes of low bone mineral density may be appropriate. FRAX is a World Health Organization validated fracture risk assessment tool that calculates a person's 10 year probability of a major osteoporosis related fracture and hip fracture. According to the National Osteoporosis Foundation guidelines, postmenopausal women and men age 50 or older with low bone mass and a 10 year probability of a major osteoporosis related fracture = or greater than 20% or a 10 year probability of a hip fracture = or greater than 3% should be considered for pharmacological treatment for the prevention of osteoporosis. For further information, including treatment recommendations, please refer to the 2019 ISCD Official Positions (http://www.iscd.org) and the NOF's Clinician's Guide to Prevention and Treatment of Osteoporosis (http://www.nof.org/professionals/clinical-guidelines) THIS IS AN ELECTRONICALLY VERIFIED FINAL REPORT 04/11/2025 8:18 PM - Electronically signed by Nimesh Manuel M.D. MF: LENCHO Report ID: [id number] Reading Location: [place] [address] Procedure Note Nimesh Manuel MD - 04/11/2025 EXAM DESCRIPTION: DEXA AXIAL SKELETON BONE DENSITY 1 OR MORE SITES REASON FOR STUDY: 85 y/o year old F with given history of:osteoporosis Screening Checker/Stocker/Model: [employer] (S/N [id number]) Facility LSC value of 0.022 for the AP spine, 0.027 for the femur, and0.023 for the forearm. CLINICAL INFORMATION: Current height: 63 inches Maximum height: 64 inches Weight: 128 pounds Risk factors: Postmenopausal, smoking history, asthma or emphysema COMPARISON: 11/07/2021 FINDINGS: AP LUMBAR SPINE L1-L4: Total BMD is 0.941 g/cm2 T-score is -1.0 LEFT HIP: Total BMD is 0.647 g/cm2 T-score is -2.4 Femoral neck BMD is 0.526 g/cm2 T-score is -2.9 FRAX: FRAX not reported due to T-scores of hip, femoral neck and/or spine beingat or below -2.5 (Osteoporosis). IMPRESSION: 1. Osteoporosis. REFERENCE: Bone mineral density: T-Score: Normal (T-score above or = -1.0) Low bone mass (T-score between -1.0 and -2.5) replaces thepreviously used term osteopenia Osteoporosis (T-score = or below -2.5) Z-Score: Within the expected range for age (Z-score above -2.0) Below the expected range for age (Z-score is -2.0 or below) Please see below follow up recommendations. Medical evaluation forsecondary causes of low bone mineral density may be appropriate. FRAX is a World Health Organization validated fracture risk assessmenttool that calculates a person's 10 year probability of a major osteoporosisrelated fracture and hip fracture. According to the National OsteoporosisFoundation guidelines, postmenopausal women and men age 50 or older with low bonemass and a 10 year probability of a major osteoporosis related fracture = or greater than 20% or a 10 year probability of a hip fracture = or greaterthan 3% should be considered for pharmacological treatment for the preventionof osteoporosis. For further information, including treatment recommendations, please referto the 2019 ISCD Official Positions (http://www.iscd.org) and the NOF's Clinician's Guide to Prevention and Treatment of Osteoporosis (http://www.nof.org/professionals/clinical-guidelines) THIS IS AN ELECTRONICALLY VERIFIED FINAL REPORT 04/11/2025 8:18 PM - Electronically signed by Nimesh Manuel M.D. MF: LENCHO Report ID: [id number] Reading Location: [place] [address] Leti Manuel NP IMG DXA PROCEDURES Edit ed Result - Final * (ABNORMAL) eGFR (03/29/2025 12:38 PM CDT) [facility] Signature eGFR 37(L) >=60 mL/min/1. 73 m2 Comment: Interpretive Data Reference Interval Normal >/= 90 mL/min/1.73m2 Mildly decreased* 60 - 89 mL/min/1.73m2 Mildly to moderately decreased 45 - 59 mL/min/1.73m2 Moderately to severely decreased 30 - 44 mL/min/1.73m2 Severely decreased 15 - 29 mL/min/1.73m2 Kidney Failure < 15 mL/min/1.73m2 *Relative to young adult level Estimated glomerular filtration rate is determined by the 2020 CKD-EPI equation recommended by the National Kidney Foundation (A Unifying Approach to GFR Estimation: Recommendations of the NKF-ASK Task Force on Reassessing the Inclusion of Race in Diagnosing Kidney Disease, JASN 2020). The CKD-EPI equation should not be used for patients with unstable renal function and has not been validated in children and those over 70. Current interpretive data was last reviewed 2021. Blood 03/29/2025 12:3 8 PM CDT 03/29/2025 1:20 PM CDT Leti Manuel NP LAB BLOOD ORDERABLES nal Result [facility] ([place]) 1 [facility] [place] [address] * Differential, auto (03/29/2025 12:38 PM CDT) Neutrophil abs 3.38 1.50 - 6.50 K/cumm Imm gran abs 0.03 0.00 - 0.10 K/cumm [facility] ([place]) Lymphocyte abs 2.36 0.80 - 3.30 K/cumm [facility] ([place]) Monocyte abs 0.63 0.20 - 0.80 K/cumm [facility] ([place]) Eosinophil abs 0.27 0.00 - 0.50 K/cumm [facility] ([place]) Basophil abs 0.06 0.00 - 0.10 K/cumm [facility] ([place]) Neutrophil pct 50.2 % [facility] ([place]) Comment: Interpretive Data Percent cell count reference ranges are not reported, since discordance with absolute values may lead to misinterpretation of CBC data. Current Interpretive Data was last revised on 2017. Imm gran pct 0.4 % [facility] ([place]) Comment: Interpretive Data Percent cell count reference ranges are not reported, since discordance with absolute values may lead to misinterpretation of CBC data. Current Interpretive Data was last revised on 2017. Lymphocyte pct 35.1 % [facility] ([place]) Comment: Interpretive Data Percent cell count reference ranges are not reported, since discordance with absolute values may lead to misinterpretation of CBC data. Current Interpretive Data was last revised on 2017. Monocyte pct 9.4 % [facility] ([place]) Comment: Interpretive Data Percent cell count reference ranges are not reported, since discordance with absolute values may lead to misinterpretation of CBC data. Current Interpretive Data was last revised on 2017. Eosinophil pct 4.0 % [facility] ([place]) Comment: Interpretive Data Percent cell count reference ranges are not reported, since discordance with absolute values may lead to misinterpretation of CBC data. Current Interpretive Data was last revised on 2017. Basophil pct 0.9 % [facility] ([place]) Comment: Interpretive Data Percent cell count reference ranges are not reported, since discordance with absolute values may lead to misinterpretation of CBC data. Current Interpretive Data was last revised on 2017. Blood 03/29/2025 12:3 8 PM CDT 03/29/2025 1:20 PM CDT Leti Manuel NP LAB BLOOD ORDERABLES Fi nal Result [facility] ([place]) 1 [facility] [place] [address] * Thyroid Function [place] (03/29/2025 12:38 PM CDT) TSH 4.11 0.30 - 4.20 mcIUnit/mL [facility] ([place]) Blood 03/29/2025 12:3 8 PM CDT 03/29/2025 1:20 PM CDT Leti S. Christopher LAWN CARE WORKER LAB BLOOD ORDERABLES Fi nal Result [facility] ([place] 1 [facility] [employer] [place] [address] * (ABNORMAL) CBC with auto differential (03/29/2025 12:38 PM CDT) WBC 6.73 3.80 - 9.90 K/cumm Hgb 16.5(H) 11.9 - 15.5 g/dL [facility] ([place]) Hct 49.6(H) 35.6 - 45.5 % [facility] ([place]) Plt 191 150 - 400 K/cumm [facility] ([place]) MPV 12.0 9.1 - 12.3 fL [facility] ([place]) RBC 5.26(H) 3.90 - 5.20 M/cumm [facility] ([place]) MCV 94.3 81.3 - 96.4 fL [facility] ([place]) MCH 31.4 27.1 - 33.3 pg [facility] ([place]) MCHC 33.3 32.3 - 35.7 g/dL [facility] ([place]) RDW CV 13.3 11.1 - 14.9 % [facility] ([place]) RDW SD 46.6 35.7 - 48.1 fL [facility] ([place]) NRBC abs 0.00 0.00 - 0.01 K/cumm [facility] ([place]) Blood 03/29/2025 12:3 8 PM CDT 03/29/2025 1:20 PM CDT Leti Manuel LAWN CARE WORKER LAB BLOOD ORDERABLES Fi nal Result [facility] ([place] 1 [facility] [employer] [place] [address] * Vitamin D 25 hydroxy (03/29/2025 12:38 PM CDT) Vitamin D 25-OH 31 30 - 80 ng/mL [facility] ([place]) Blood 03/29/2025 12:3 8 PM CDT 03/29/2025 1:20 PM CDT Leti Manuel NP LAB BLOOD ORDERABLES Fi nal Result [facility] ([place]) 1 [place] [address] * Magnesium (03/29/2025 12:38 PM CDT) Magnesium 2.2 1.4 - 2.5 mg/dL [facility] Blood 03/29/2025 12:3 8 PM CDT 03/29/2025 1:20 PM CDT Leti Manuel NP LAB BLOOD ORDERABLES Fi nal Result Performing Organization Address [facility] Co de Phone Number [facility] ([place]) 1 [place] [address] * Hemoglobin A1c (03/29/2025 12:38 PM CDT) Hgb A1C 5.5 4.0 - 5.6 % [facility] ([place]) Estimated Average Glucose 111 mg/dL [facility] ([place]) Comment: The ADA recommends reporting an estimated Average Glucose (eAG) with all Hemoglobin A1c results using the equation derived from a study of 507 normal and diabetic adults. Minority populations were underrepresented and children were not included. (Diabetes Care 31:6092-4481, 2008). The eAG is not equivalent to a fasting glucose. Testing performed by: [facility], [facility], [place], [address] Blood 03/29/2025 12:3 8 PM CDT 03/29/2025 1:20 PM CDT Leti Manuel NP LAB BLOOD ORDERABLES Fi nal Result Performing Organization Address City/[facility]/ZIP Co de Phone Number [facility] ([place]) 1 [facility] [place] [address] * Vitamin B12 (03/29/2025 12:38 PM CDT) Vitamin B12 975 230 - 1,250 pg/mL [facility] ([place]) Blood 03/29/2025 12:3 8 PM CDT 03/29/2025 1:20 PM CDT us Leti Manuel NP LAB BLOOD ORDERABLES Fi nal Result [facility] ([place] 1 [facility] [place] [address] * (ABNORMAL) Lipid panel (03/29/2025 12:38 PM CDT) Cholesterol 154 30 - 199 mg/dL [facility] ([place]) Comment: Interpretive Data Ages < or = 19 years Acceptable: <170 mg/dL Borderline high: 170-199 mg/dL High: >or= 200 mg/dL Ages > or = 20 years Desirable: <200 mg/dL Borderline high: 200-239 mg/dL High: >or= 240 mg/dL Literature References: 1. Expert Panel on Integrated Guidelines for Cardiovascular Health and Risk Reduction in Children and Adolescents. Pediatrics 2011;128:S213 2. NCEP Expert Panel. Circulation 2004;110:227 Current Interpretive Data was last revised on 2018. Triglycerides 157(H) <=149 mg/dL [facility] ([place]) Comment: Interpretive Data Ages < or = 9 years Acceptable: <75 mg/dL Borderline high: 75-99 mg/dL High: >or= 100 mg/dL Ages 10 to 20 years Acceptable: <90 mg/dL Borderline high: 90-129 mg/dL High: >or= 130 mg/dL Ages > or = 20 years Desirable: <150 mg/dL Borderline high: 150-199 mg/dL High: 200-499 mg/dL Very high: >or= 499 mg/dL Literature References: 1. Expert Panel on Integrated Guidelines for Cardiovascular Health and Risk Reduction in Children and Adolescents. Pediatrics 2011;128:S213 2. NCEP Expert Panel. Circulation 2004;110:227 Current Interpretive Data was last revised on 2018. HDL 45 >=40 mg/dL [facility] ([place]) Comment: Interpretive Data Ages < or = 19 years Acceptable: >45 mg/dL Borderline low: 40-45 mg/dL Low: <40 mg/dL Ages > or = 20 years Desirable: >or= 60 mg/dL Low: <40 mg/dL Literature References: 1. Expert Panel on Integrated Guidelines for Cardiovascular Health and Risk Reduction in Children and Adolescents. Pediatrics 2011;128:S213 2. NCEP Expert Panel. Circulation 2004;110:227 Current Interpretive Data was last revised on 2018. LDL, calculated 82 <=129 mg/dL [facility] ([place]) Comment: Interpretive Data Ages < or = 19 years Acceptable: <110 mg/dL Borderline high: 110-129 mg/dL High: >or= 130 mg/dL Ages > or = 20 years Optimal: <100 mg/dL Near optimal: 100-129 mg/dL Borderline high: 130-159 mg/dL High: >160 mg/dL Calculated using the Hernan LDL-C estimating equation. This equation was implemented on 2024. Prior to this date LDL-C was estimated using the Friedewald equation. Literature References: 1. Expert Panel on Integrated Guidelines for Cardiovascular Health and Risk Reduction in Children and Adolescents. Pediatrics 2011;128:S213 2. NCEP Expert Panel. Circulation 2004;110:227 3. Hernan Pruett al. LENNOX Cardiol. 2019December 15;5(5):540-548. doi: 10.1001/jamacardio.2020.0013 Current Interpretive Data was last revised on 2024. Testing performed by: [facility], [facility], [place], [address] Non-HDL Cholesterol 109 mg/dL [facility] ([place]) Comment: Interpretive Data Ages < or = 19 years Acceptable: <120 mg/dL Borderline high: 120-144 mg/dL High: >145 mg/dL Ages > or = 20 years When triglycerides are >200 mg/dL, Non-HDL cholesterol is a secondary target of therapy with treatment goals that are 30 mg/dL greater than the LDL cholesterol target. Literature References: 1. Expert Panel on Integrated Guidelines for Cardiovascular Health and Risk Reduction in Children and Adolescents. Pediatrics 2011;128:S213 2. NCEP Expert Panel. Circulation 2004;110:227 Current Interpretive Data was last revised on 2018. Testing performed by: [facility], [facility], [place], [address] Chol/HDL ratio 3 CER[facility] Janel [facility] ([place]) Comment:Testing performed by : [facility], [facility], [place], [address] Blood 03/29/2025 12:3 8 PM CDT 03/29/2025 1:20 PM CDT Narrative [facility] ([place]) - 03/29/2025 1:45 PM CDT Has the patient been fasting for 8 hours or more?->Yes us Leti Manuel NP LAB BLOOD ORDERABLES nal Result [facility] [address] [place] [address] [place] [address] * (ABNORMAL) Comprehensive metabolic panel (03/29/2025 12:38 PM CDT) Sodium 138 135 - 145 mmol/L [facility] ([place]) Potassium, pl 4.4 3.3 - 4.9 mmol/L [facility] Chloride 103 97 - 110 mmol/L [facility]) CO2 24 22 - 32 mmol/L [facility]) Anion gap 11 2 - 15 mmol/L [facility] BUN 32(H) 6 - 25 mg/dL [facility] Creatinine 1.40(H) 0.60 - 1.10 mg/dL [facility] ([place]) Glucose 105 70 - 199 mg/dL [facility] ([place] Comment: Interpretive Data Fasting glucose >/= 126 mg/dl is diagnostic for diabetes. Fasting is defined as no caloric intake for at least 8 hours. Fasting glucose between 100 mg/dl to 125 mg/dl is diagnostic of prediabetes. In a patient with classic symptoms of hyperglycemia or hyperglycemic crisis, a random glucose >/= 200 mg/dl is diagnostic for diabetes. In the absence of unequivocal hyperglycemia, results should be confirmed by repeat testing. The classification and Diagnosis of Diabetes Diabetes Care 2021; 46: S19-S40. Current interpretive data was last revised 2022. Calcium 10.0 8.5 - 10.3 mg/dL [facility] ([place]) Bilirubin, total 0.6 0.1 - 1.2 mg/dL [facility] ([place]) Protein, pl 6.8 6.5 - 8.5 g/dL [facility] ([place]) Albumin 4.2 3.5 - 5.0 g/dL [facility] ([place]) Alk phos 69 40 - 130 Units/L [facility] ([place]) ALT 14 7 - 45 Units/L [facility] ([place]) AST 30 10 - 45 Units/L [facility] ([place]) Blood 03/29/2025 12:3 8 PM CDT 03/29/2025 1:20 PM CDT Leti Manuel NP LAB BLOOD ORDERABLES Fi nal Result [facility] ([place]) 1 [facility] [place] [address] * Screening Mammogram Bilateral W Ritesh (09/02/2024 1:54 PM LAUNDRY PRICING CLERK) Anatomical Region Laterality Modality Breast Bilateral Mammography 09/02/2024 3:00 PM LAUNDRY PRICING CLERK Impressions 09/02/2024 3:00 PM LAUNDRY PRICING CLERK No evidence of malignancy in either breast. FINAL ASSESSMENT: BI-RADS Category 2: Benign. RECOMMENDATION: Recommend return for annual screening mammogram in 12 months. Electronically signed by: Chaitanya Dumont M.D. Narrative 09/02/2024 3:00 PM LAUNDRY PRICING CLERK EXAMINATION: BILATERAL SCREENING MAMMOGRAM COMPARISON: 07/16/2023, 06/11/2022, 05/04/2021, 04/10/2020 TECHNIQUE: Full-field 2D and digital breast tomosynthesis (DBT) images were obtained. CAD was utilized. BREAST PARENCHYMAL COMPOSITION: There are scattered areas of fibroglandular density. FINDINGS: There are benign scattered calcifications in both breasts without suspicious change. There is no new suspicious finding in either breast on mammogram. us Self Screening Mammogram IMG MAMMO PROCEDURES Fi nal Result * COLONOSCOPY (05/29/2016) Colonoscopy Normal Historical Provider MD HEALTH MAINTENANCE Final Result from Last 3 Months or Most Recently Relevant to Health Maintenance Insurance [facility] [employer] MEDICARE HMO Advance Directives For more information, please contact: [phone] * Full Code (Latest Code Status on File) Date Activated Date Inactivated Comments 01/29/2025 3:42 PM 01/31/2025 7:33 PM * Full Code Date Activated Date Inactivated Comments 05/29/2022 9:37 AM 05/30/2022 5:11 PM * Full Code Date Activated Date Inactivated Comments 03/14/2021 8:23 PM 03/15/2021 2:48 PM * Full Code Date Activated Date Inactivated Comments 03/19/2020 9:40 AM 03/20/2020 11:28 PM * Full Code Date Activated Date Inactivated Comments 07/02/2019 5:42 PM 07/04/2019 8:56 PM Care Teams Clinical Unit Educator Relationship Specialty Start Date End Date Leti Manuel, LAWN CARE WORKER [address] [place] [address] PCP - General Family Medicine 11/15/24 Sarthak Jensen MD Consulting Physician Cardiology 03/04/18 Darren Houser MD Consulting Physician Cardiology 08/28/19 Bette More MD Consulting Physician Cardiology 01/11/20 Leanna Ken MD [address] [address] Consulting Physician Pulmonary Disease 02/15/20 Nicolas Garcia DPM [address] [place] [address] Consulting Physician Foot and Ankle Surg 05/08/[address] MD [address] [place] [address] Consulting Physician Dermatology 02/10/22 Bertrand Vick MD [address] [place] [address] Referring Physician Ophthalmology 12/09/23
--- OUTSIDE RECORDS SUMMARY | 2025-06-20 15:38 | XMS_ITS | Encounter Summary ---
Author Organization [facility] Healthcare Address [address] [place] [address] Care Team Providers Care Email Specialist Name Role Phone Sarthak Jensen MD Unavailable [phone] Cornel Amaya MD Primary Care Provider [phone] Harish Garay MD Unavailable [phone] Darren Houser MD Unavailable [phone] Bette More MD Unavailable [phone] Leanna Ken MD Unavailable [phone] NataliyaMelchor flaherty RN Unavailable [phone] NataliyaMelchor flaherty RN Unavailable [phone] Nicolas Garcia DPM Unavailable Ravi Freeman MD Unavailable [phone] MD Unavailable [phone] NataliyaMelchor flaherty RN Unavailable NataliyaMelchor flaherty RN Unavailable Radha Small BATTERY FILLER Unavailable [phone] Rochelle Bowers NP Unavailable [phone] Amy Farley BATTERY FILLER Unavailable Bertrand Vick MD Unavailable [phone] Leti Manuel NP Primary Care Provider Gloria Pollard RN Unavailable Reason for Visit * Reason Onset Date Comments Scheduling Appointments 05/03/2021 confirmi ng mammogram appt- no answer Encounter Details Date Type Department Care Team (Late st Contact Info) Description 05/03/2021 Telephone [facility] [address] [place] [address] Barbara Martini RT Scheduling Appointments (confirming mammogram appt- no answer ) Social History Tobacco Use Types Packs/Day Years Used Date Smoking Tobacco: Some Days Cigarettes 0.5 70.8 Started: 1955 Smokeless Tobacco: Never Comments:trying to quit/wear ing a patch Alcohol Use Standard Drinks/Week Comments No 0 (1 standard drink = 0.6 oz pur e alcohol) Social Connection and Isolation Panel Answer Date Recorded In a typical week, how many times do you talk on the phone with family, friends, or neighbors? More than three times a week 04/09/2021 How often do you get togethe r with friends or relatives? More than three times a week 04/09/2021 How often do you attend chur ch or shinto services? Never 04/09/2021 Do you belong to any clubs o r organizations such as uatsdin groups, unions, fraternal or athletic groups, or school groups? No 04/09/2021 How often do you attend meet ings of the clubs or organizations you belong to? Never 04/09/2021 Are you , , di vorced, , never , or living with a partner? 04/09/2021 AUDIT-C Answer Date Recorded Q1: How often do you have a drink containing alc ohol? Never 03/14/2021 Average Number of Drinks Not on file 021 Q3: How often do you have si x or more drinks on one occasion? Never 03/14/2021 Overall Financial Resource Strain (CARDIA) Answe r Date Recorded How hard is it for you to pa y for the very basics like food, housing, medical care, and heating? Not very hard 03/18/2021 PHQ-2 Answer Date Recorded PHQ-2 Total Score (If total score is 3 or more points, staff should administer the PHQ-9) 0 07/25/2020 Hunger Vital Sign Answer Date Recorded Within the past 12 months, y ou worried that your food would run out before you got the money to buy more. Never true 03/30/20 20 Within the past 12 months, t he food you bought just didn't last and you didn't have money to get more. Never true 03/30/2020 PRAPARE - Transportation Answer Date Re corded In the past 12 months, has l ack of transportation kept you from medical appointments or from getting medications? No 09/2020 In the past 12 months, has l ack of transportation kept you from meetings, work, or from getting things needed for daily living? No 03/18/2021 Housing Stability Vital Sign Answer Santi e Recorded In the last 12 months, was t here a time when you were not able to pay the mortgage or rent on time? No 11/08/2020 In the last 12 months, how many places have you lived? 1 11/08/2020 In the last 12 months, was t here a time when you did not have a steady place to sleep or slept in a retirement (including now)? 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 Gender Identity Not on file Sexual Orientation Not on file documented as of this encounter Plan of Treatment Not on file documented as of this encounter Visit Diagnoses Not on filedocumented in this encounter Care Teams Email Specialist Relationship Specialty Start Date End Date Cornel Amaya MD [address] [place] [address] PCP - General 07/02/19 11/14/24 Leti Manuel NP [address] [place] [address] PCP - General Family Medicine 11/15/24 Sarthak Jensen MD Consulting Physician Cardiology 03/04/18 Harish Garay MD [address] [place] [address] Consulting Physician Gastroenterology 07/08/19 04/27/24 Darren Houser MD [address] [place] [address] Consulting Physician Cardiology 08/28/19 Bette More MD [address] [place] [address] Consulting Physician Cardiology 01/11/20 Leanna Ken MD [address] [facility] [address] [place] [address] Consulting Physician Pulmonary Disease 02/15/20 Melchor An, JENNIFER [address] [place] [address] [address] [place] [address] Woven Label Designer 03/18/21 05/16/21 Melchor An, JENNIFER [address] [place] [address] [address] [place] [address] Woven Label Designer 05/17/21 03/24/22 Nicolas Garcia, DPM [facility] [place] [address] Consulting Physician Foot and Ankle Surg 05/08/21 Ravi [place] MD [address] [place] [address] Surgeon Orthopedic Surgery 07/22/21 04/18/[address] MD [address] [place] [address] Consulting Physician Dermatology 02/10/22 Melchor An, JENNIFER [address] [place] [address] [address] [place] [address] Woven Label Designer 03/25/22 04/28/22 Melchor An, JENNIFER [address] [place] [address] [address] [place] [address] Woven Label Designer 04/29/22 06/30/24 Radha Small, BATTERY FILLER [address] [place] [address] [place] [address] Operations Officer 06/10/22 06/16/22 Rochelle Bowers NP [address] [place] [address] [place] [address] Nurse Practitioner Cardiology 01/13/23 04/27/24 Amy Farley, BATTERY FILLER [address] [place] [address] [place] [address] Operations Officer 07/17/23 08/27/23 Bertrand Vick MD [address] [place] [address] Referring Physician Ophthalmology 12/09/23 Gloria Pollard, JENNIFER [address] [place] [address] [address] [place] [address] [address] Woven Label Designer 02/01/25 03/08/25 documented as of this encounter
--- OUTSIDE RECORDS SUMMARY | 2025-06-20 15:38 | XMS_ITS | Encounter Summary ---
Author Organization [facility] Healthcare Address [address] [place] [address] Care Team Providers Care Investigator Utility Bill Complaints Name Role Phone Sarthak Jensen MD Unavailable [phone] Cornel Amaya MD Primary Care Provider [phone] Harish Garay MD Unavailable [phone] Darren Houser MD Unavailable [phone] Bette More MD Unavailable [phone] Leanna Ken MD Unavailable [phone] NataliyaMelchor flaherty RN Unavailable [phone] Nicolas Garcia DPM Unavailable [phone] Ravi Freeman MD Unavailable [phone] MD Unavailable [phone] NataliyaMelchor flaherty RN Unavailable [phone] NataliyaMelchor flaherty RN Unavailable [phone] Radha Small SHUT OFF WORKER Unavailable [phone] Rochelle Bowers NP Unavailable [phone] Amy Farley SHUT OFF WORKER Unavailable Bertrand Vick MD Unavailable [phone] Leti Manuel NP Primary Care Provider Gloria Pollard RN Unavailable [phone] Reason for Visit * Reason Onset Date Comments Scheduling Appointments 11/06/2021 Reminder call for DEXA. Encounter Details Date Type Department Care Team (Late st Contact Info) Description 11/06/2021 Telephone [facility] [address] [place] [address] Ifeoma Acharya RT Scheduling Appointments (Reminder call for DEXA. ) Social History Tobacco Use Types Packs/Day [...] often do you attend chur ch or hinduism services? Never 04/09/2021 Do you belong to any clubs o r organizations such as tenriism groups, unions, fraternal or athletic groups, or [...] more points, staff should administer the PHQ-9) 1 08/05/2021 Hunger Vital Sign Answer Date Recorded Within [...] the mortgage or rent on time? No 09/19/2021 In the last 12 months, how many places have you lived? 1 09/19/2021 In the last 12 months, was t here a time when you did not have a steady place to sleep or slept in a senior care (including now)? No 09/19/2021 Comments No Sex and Gender Information Value Date Recorded Sex Assigned at Not on file Legal Sex Female 1:30 PM [employer] TE[employer]ICAL DIRECT[employer] Gender Identity Not on file Sexual Orientation Not on file documented as of this encounter Plan of Treatment Not on file documented as of this encounter Visit Diagnoses Not on filedocumented in this encounter Care Teams Investigator Utility Bill Complaints Relationship Specialty Start Date End Date Cornel Amaya MD [address] [place] [address] PCP - General 07/02/19 11/14/24 Leti Manuel NP [address] [facility] [place] [address] PCP - General Family Medicine 11/15/24 Sarthak Jensen MD Consulting Physician Cardiology 03/04/18 Harish Garay MD [address] [place] [address] Consulting Physician Gastroenterology 07/08/19 04/27/24 Darren Houser MD [address] [place] [address] Consulting Physician Cardiology 08/28/19 Bette More MD [address] [place] [address] Consulting Physician Cardiology 01/11/20 Leanna Ken MD [address] [place], [place] [id number] Consulting Physician Pulmonary Disease 02/15/20 Melchor An, JENNIFER [address] [place] [address] [address] [place] [address] Warp Worker 05/17/21 03/24/22 Nicolas Garcia DPM [address] [facility] [place] [address] Consulting Physician Foot and Ankle Surg 05/08/21 Ravi Freeman MD [address] [place] [address] Surgeon Orthopedic Surgery 07/22/21 04/18/[address] MD [address] [place], [place] [id number] Consulting Physician Dermatology 02/10/22 Melchor An, JENNIFER [address] [place] [address] [address] [place] [address] Warp Worker 03/25/22 04/28/22 Melchor An RN [address] [place] [address] [address] [place] [address] Warp Worker 04/29/22 06/30/24 Radha Small, SHUT OFF WORKER [address] [place] [address] [place] [address] Test And Turn Up Technician 06/10/22 06/16/22 Rochelle Bowers NP [address] [place] [address] [place] [address] Nurse Practitioner Cardiology 01/13/23 04/27/24 Amy Farley, SHUT OFF WORKER [address] [place] [address] [place] [address] Test And Turn Up Technician 07/17/23 08/27/23 Bertrand Vick MD [address] [place] [address] Referring Physician Ophthalmology 12/09/23 Gloria Pollard RN [address] [place] [address] [address] [place] [address] Warp Worker 02/01/25 03/08/25 documented as of this encounter
== END 2025-06-20 14:56 | disposition home or self-care (01) ==
PROVIDERS: Emergency Provider Registered Nurse
DX: M79.661 Pain in right lower leg (principal); I11.0 Hypertensive heart disease with heart failure; I50.9 Heart failure, unspecified; I48.20 Chronic atrial fibrillation, unspecified; J44.9 Chronic obstructive pulmonary disease, unspecified; F17.210 Nicotine dependence, cigarettes, uncomplicated; Z79.899 Other long term (current) drug therapy; Z79.01 Long term (current) use of anticoagulants
CPT/HCPCS: 99211; G0463